=== PATIENT | male | born 1965 | race Caucasian/White ===

== ENCOUNTER → 2017-09-03 | Day surgery (SDC) | payer OTHER ==
[2017-09-02 08:56] VITALS: Ht 176.5 cm; Wt 130.0 kg
[~2017-09-03] VITALS: Ht 176.5 cm; Wt 130.0 kg
[~2017-09-03] MED LIST: ATROPINE SULFATE 0.1 MG/ML 5ML SYR IV PRN; BUPIVACAINE/EPINEPHRINE 0.5% MPF 1:200,000 30 ML VIAL ONE; CEFAZOLIN 3000MG IV PUSH 15 ML IV SCH; CEFAZOLIN SOD 1 GM VIAL ONE; CEFAZOLIN SOD 1000MG/5 ML IV PUSH IV ONE; DEXAMETHASONE SOD INJ 4 MG/ML VIAL ONE; EpHEDrine SULFATE INJ 50 MG/ML AMP IV PRN; EpHEDrine SULFATE INJ 50 MG/ML AMP ONE; FENTANYL CITRATE INJ 50 MCG/1 ML 2 ML VIAL ONE; FIBETAB2 PO; FLUMAZENIL 0.1 MG/1 ML 10 ML VIAL IV PRN; GLYCOPYRROLATE INJ 0.2 MG/ML VIAL ONE; KETO10TA PO; LABETALOL HCL IV 5 MG/ML 20ML IV PRN; LACTATED RINGER'S 1000ML 1,000 ML IV SCH; LIDOCAINE HCL 2% 2 ML VIAL (20MG/ML) ONE; LOSA1TAB PO; LSX20 PO; MIDAZOLAM HCL 1 MG/ML 2ML VIAL ONE; NALOXONE HCL 0.4 MG/1 ML VIAL/CARP IV PRN; NEOSTIGMINE METHYLSULFATE 5 MG/5 ML SYR ONE; ONDANSETRON INJ 2 MG/ML 2 ML VIAL IV PRN; ONDANSETRON INJ 2 MG/ML 2 ML VIAL ONE; OXYC-57 PO; OXYCODONE/ACETAMINOPHEN 5-325 TAB PO PRN; PROMETHAZINE HCL INJ 12.5 MG in SODIUM CHLORIDE 0.9% 50ML 50 ML IV PRN; PROPOFOL IV EMULSION 10 MG/ML 20 ML VIAL IV ONE; PRVC40 PO; ROCURONIUM BROMIDE 10 MG/ML 5 ML VIAL IV ONE; SODIUM CHLORIDE 0.9% 1000ML 1,000 ML IV SCH; SODIUM CHLORIDE 0.9% INJ 10 ML VIAL ONE; SUCCINYLCHOLINE CHLORIDE 20 MG/ML 10 ML VIAL IV ONE; VNTHFA/IN INH
--- NOTE | 2017-09-03 10:26 | History & Physical Bridge - [place] ---
H&P Re-Evaluation Bridge Note: I have examined the patient, reviewed the History & Physical and in the interval since the performance of the History & Physical I have noted the following changes of clinical significance: No changes noted
--- NOTE | 2017-09-03 12:14 | [facility] Post Operative Brief Note ---
Immediate Operative Summary Operative Date Sep 03, 2017. Pre-Operative Diagnosis Right Distal Biceps Rupture Post-Operative Diagnosis Same Procedure(s) Performed Right Distal Biceps Repair Surgeon Dr. Carson Nursing Attendant Surgeon(s) Jessica Woods PA-C Estimated Blood Loss 20 ml Findings Right Distal Biceps Rupture Specimens None Anesthesia General Complication(s) None Disposition Recovery Room / PACU
--- NOTE | 2017-09-03 12:16 | Discharge Instructions-SurgCtr ---
Discharge Instructions Date of Service Sep 03, 2017. Visit Reason for Visit: Right Distal Biceps Rupture Discharge Discharge Diagnosis / Problem: right distal bicep rupture Discharge Goals Goal(s): Improve function, Therapeutic intervention Medications Stopped Medications Name(s): no blood thinners Activity Recommendations Activity Limitations: per Instructions/Follow-up section limited use of right arm Anesthesia . Post Anesthesia Instructions: If you have had General Anesthesia or IV Sedation: * Do not drive today. * Resume driving when surgeon permits. * Do not make important decisions or sign legal documents today. * Call surgeon for: 1. Temperature elevations greater than 101 degrees F. 2. Uncontrollable pain. 3. Excessive bleeding. 4. Persistent nausea and vomiting. 5. Medication intolerance (nausea, vomiting or rash). * For nausea and vomiting use only clear liquids such as: tea, soda, bouillon until nausea subsides, then gradually increase diet as tolerated. * If you have any concerns or questions, call your surgeon's office. If physician is unavailable and it is an emergency, call 911 or go to the nearest emergency room. . Instructions / Follow-Up Instructions / Follow-Up MEDICATIONS: * Resume previous medications unless instructed otherwise by your surgeon. * Always take pain medication on a full stomach or with food to avoid upset stomach. * Do not drink alcohol or drive while taking narcotics. * Ibuprofen or Tylenol may be taken if narcotic not needed. No ibuprofen while taking toradol SPECIAL CARE INSTRUCTIONS: __ None _x_ Keep extremity elevated and iced x 48 hours; apply ice 20-30 minutes 8-10 times/day. May remove at night. _x_ Sling _x_24 hrs/day __ Remove at night __ Shoulder Immobilizer __ 24 hrs/day __ Remove at night _x_ Dressing _x_ Maintain until seen in office, may shower with plastic over site __ Remove dressings in 24-48 hours and then may shower __ Cover incisions with band-aids after showering __ Do not remove steri-strips Call physician if chills or temperature rises above 102 degrees or pain unrelieved by prescribed pain medications at . follow up in 2 weeks . Diet Recommendations Home Diet: resume previous diet Procedures Procedures Performed: Right Distal Biceps Repair Pending Studies Studies pending at discharge: no Medical Emergencies . Who to Call and When: Medical Emergencies: If at any time you feel your situation is an emergency, please call 911 immediately. . Non-Emergent Contact Non-Emergency issues call your: Surgeon . . "Provider Documentation" section prepared by Ken Woods. .
[2017-09-03] MEDS: HYDROmorphone INJ 1 MG/ML SYR IV PRN ×3 (13:10→13:35)
--- NOTE | 2017-09-03 13:44 | OPERATIVE REPORT ---
DATE OF OPERATION: 09/03/2017 SURGEON: Dr. Naun Carson. OFFICE MACHINE SERVICER APPRENTICE: FREDY Nelson PREOPERATIVE DIAGNOSIS: Subacute right distal biceps rupture. POSTOPERATIVE DIAGNOSIS: Same. PROCEDURE PERFORMED: Right distal biceps repair. COMPLICATIONS: None. ESTIMATED BLOOD LOSS: 20 mL. ANESTHESIA: General. SPECIMENS: None. TOURNIQUET TIME: 44 minutes at 250 mmHg. OPERATIVE INDICATIONS: The patient is a 51-year-old gentleman who injured his arm initially just about 3 weeks ago. He was apparently carrying a ladder when he kind of felt a tearing sensation, pain and discomfort in his arm. It got significantly better over the next several days. He was actually out of town for a while and then just a couple days ago, he felt like most of the pain was better and then he did something where he was in the bathroom and felt further popping and discomfort and swelling in his arm. He was seen in his medical clinic and had an MRI which revealed a distal biceps rupture. The patient elected to proceed with operative treatment. OPERATIVE PROCEDURE: The patient was taken to the operating room, identified and placed on the operating table in supine position. All contact areas were appropriately padded. IV antibiotics were provided by the anesthesia team. A general anesthetic was implemented by the anesthesia team. Right upper extremity tourniquet was placed. The right arm was then prepped and draped in the usual sterile fashion. The right arm was elevated and exsanguinated using an Esmarch and tourniquet was placed at 250 mmHg. A transverse incision about 4 cm in length was made in the antecubital fossa. Blunt dissection was carried out through the subcutaneous tissues. A large vein as well as the lateral antebrachial cutaneous nerve was identified and retracted laterally. I opened the fascia and I could immediately see the ruptured biceps tendon. It was scarred in a little bit. There was also a very large elephant foot appearance to the stump. I did trim this elephant foot stump down and then we tapped this back up into the arm. I then used a curved Teresita clamp along with my finger to develop a plane of the biceps tendon to the back of the forearm. I then passed this Teresita clamp around the radius to the posterior aspect of the arm and then marked this for the posterior exposure. Attention was then drawn to the posterior exposure. About a 5 cm incision was made over the posterior aspect of the elbow over the proximal radius and radial tuberosity. Sharp dissection was carried out through the subcutaneous tissues down to the level of the fascia. The fascia was incised longitudinally in line with the skin incision. The extensor muscle was split taking great care to keep the arm pronated and the radial nerve protected while avoid exposing the ulna to prevent any synostosis formation. I dissected directly down to the radial tuberosity. It was fairly large soft tissue envelope. There was some distance. I then cleaned the radial tuberosity off. I used a bur to create a hole in the radial tuberosity. I then drilled 2 holes the lateral aspect of the radius into the intramedullary canal. I then used a FloDesign Wind Turbine suture passer to pass some sutures through these holes into the intramedullary canal. I then went back to the biceps preparation. The biceps tendon was then sutured with a #2 FiberWire suture in a running fashion up and down the tendon. I then used a #5 Ethibond in a modified Bunnel fashion. These sutures were then passed from the antecubital fossa around the radial tuberosity to the posterior aspect of the arm. The passing sutures were then used to pass those sutures into the radius. I fed the tendon into the hole and it fit quite nicely. The sutures were then tied. I then examined the arm and the biceps tendon locked down nicely. It was a bit tight, but as it was expected. I then irrigated both wounds extensively. I injected the posterior wound with 20 mL of 0.5% Marcaine with epinephrine and the anterior wound with 10 mL of 0.5% Marcaine with epinephrine. The tourniquet was then let down for final tourniquet time 44 minutes. The hemostasis was assured with use of electrocautery. I irrigated both wounds extensively to get rid of any bony debris that would increase risk of heterotopic ossification. I then repaired the fascia over the posterior wound with 0 Vicryl suture in running fashion. The subcutaneous tissue was closed with 3-0 vicryl. The anterior wound was then irrigated. I closed the subcutaneous tissues of this wound with 3-0 Vicryl suture in buried interrupted fashion and the skin was then closed with 3-0 Prolene suture in a running fashion. The arm was then cleaned and dried and a sterile dressing of Xeroform, 4 x 4's, sterile cast padding and a well-padded posterior splint with the arm in 90 degrees of flexion was then placed. The patient was also placed in a sling. He was brought out of general anesthesia and transferred to the recovery room in stable condition. The patient tolerated the procedure with no complications. All needle and sponge counts were correct at the end of the operation. I attest to the content of the Intraoperative Record and any orders documented therein. Any exceptions are noted below. NANCY
--- NOTE | 2017-09-03 14:09 | Anesthesia Progress Nt - [facility] ---
Anesthesia Post Op Note Date & Time Sep 03, 2017 at 14:09 Vital Signs Pain Intensity: 4 Vital Signs Past 12 Hours Date Time Temp Pulse Resp B/P (MAP) Pulse Ox O2 Delivery O2 Flow Rate FiO2 09/03/17 13:41 88 8 90 09/03/17 13:41 89 8 09/03/17 13:40 116/63 09/03/17 13:37 36.4 86 16 116/63 96 Room Air 09/03/17 13:36 99 16 94 09/03/17 13:36 98 16 09/03/17 13:35 95/70 09/03/17 13:31 90 13 95 09/03/17 13:31 91 13 09/03/17 13:30 120/76 09/03/17 13:26 91 12 09/03/17 13:26 91 12 91 09/03/17 13:25 115/72 09/03/17 13:21 95 12 09/03/17 13:21 95 12 95 09/03/17 13:20 111/60 09/03/17 13:16 90 9 95 09/03/17 13:16 90 9 09/03/17 13:15 116/66 09/03/17 13:11 90 10 94 09/03/17 13:11 91 10 09/03/17 13:10 116/79 09/03/17 13:06 94 5 09/03/17 13:06 95 5 139/82 93 09/03/17 13:01 89 10 09/03/17 13:01 89 10 95 09/03/17 13:00 102/72 09/03/17 12:56 89 17 09/03/17 12:56 89 17 125/72 93 09/03/17 12:51 88 8 09/03/17 12:51 88 8 92 09/03/17 12:50 132/78 09/03/17 12:46 89 6 09/03/17 12:46 90 6 94 09/03/17 12:45 132/78 09/03/17 12:41 86 9 09/03/17 12:41 86 9 107/82 95 09/03/17 12:36 88 0 09/03/17 12:36 88 0 94 09/03/17 12:35 136/81 09/03/17 12:31 89 16 126/79 96 09/03/17 12:31 89 16 09/03/17 12:26 90 19 97 09/03/17 12:26 91 19 09/03/17 12:25 36.5 91 16 140/86 97 Diffusion Mask 09/03/17 12:25 132/76 09/03/17 12:22 140/86 09/03/17 09:13 36.7 87 18 128/83 (98) 96 Room Air Notes Mental Status: alert / awake / arousable, participated in evaluation Pt Amnestic to Procedure: Yes Nausea / Vomiting: adequately controlled Pain: adequately controlled Airway Patency, RR, SpO2: stable & adequate BP & HR: stable & adequate Hydration State: stable & adequate Anesthetic Complications: no major complications apparent
[2017-09-03 14:46] VITALS: BP 107/69; PULSE 99; TEMP 36.4; O2SAT 96
== END | disposition home or self-care (01) ==
LOC: X.SURG 08:51
PROVIDERS: ATTEND Orthopaedic Surgery Sports Medicine
DX: S46.211A Strain of muscle, fascia and tendon of other parts of biceps, right arm, initial encounter (principal); X50.0XXA Overexertion from strenuous movement or load, initial encounter; I10 Essential (primary) hypertension; Z79.899 Other long term (current) drug therapy

== ENCOUNTER 2024-01-07 13:55 | Observation (INO) ==
--- NOTE | 2024-01-07 14:05 | ED Triage Note ---
Date of Service January 07, 2024 Provider in Triage Author: Mag Hebert History of Present Illness This patient was briefly evaluated while in triage. An abbreviated physical exam was performed. This patient is a 58-year-old Male who presents to the ED for evaluation of chest pain intermittently over past couple weeks. States sent here with concern for "mild heart attack." No cardiac history. No sob. Had a stress test in 2009. Physical Exam CONSTITUTIONAL: No acute distress. Well appearing. RESPIRATORY: Clear to auscultation bilaterally. Nonlabored breathing. Equal expansion bilaterally. CARDIOVASCULAR: Regular rate and rhythm. GASTROINTESTINAL: Soft, nontender. NEUROLOGIC: Alert and oriented X 4 with normal affect. Initial orders for labs and / or imaging were placed and patient was placed in the waiting area until a bed is available. Please see further documentation for the full ED course.
--- NOTE | 2024-01-07 14:55 | XRay Report ---
XR chest 1V not portable CLINICAL HISTORY: Chest pain, nonspecific TECHNIQUE: Single frontal radiograph of the chest was obtained. Comparison: Comparison is made to chest and abdomen radiograph 01/13/2013 FINDINGS: No lines and tubes are seen. The cardiomediastinal silhouette is normal. The lungs are clear. No evid ence of pleural effusion or pneumothorax. IMPRESSION: No acute chest disease. ACT 112: Negative or not required by law. Electronically signed by: Tashi Saucedo M.D. 01/07/2024 2:53 PM
[2024-01-07 14:57] LABS: Basophils # (auto) 0.06 K/uL (0.00-0.20); Basophils % (auto) 0.6 %; Hematocrit (blood only) 47.6 % (42.0-52.0); Hemoglobin 16.8 g/dl (14.0-18.0); Immature Granulocytes # (auto) 0.06 K/uL (0.01-0.20); Immature Granulocytes % (auto) 0.6 %; Lymphocytes # (auto) 2.22 K/uL (1.20-3.40); Lymphocytes % (auto) 22.7 %; Mean Corpuscular Hemoglobin 29.5 pg (25.0-34.0); Mean Corpuscular Hgb Conc 35.3 g/dL (32.0-36.0); Mean Corpuscular Volume 83.5 fL (80.0-100.0); Mean Platelet Volume 9.7 fL (9.4-12.4); Monocytes # (auto) 0.92 K/uL (0.11-0.59); Monocytes % (auto) 9.4 %; Neutrophils # (auto) 6.34 K/uL (1.40-6.50); Neutrophils % (auto) 64.7 %; Platelet Count 228 K/uL (130-400); RDW Coefficient of Variation 13.3 % (11.5-14.5); RDW Standard Deviation 40.3 fL (36.4-46.3)
[2024-01-07 15:13] LABS: Alanine Aminotransferase 37 U/L (7-52); Albumin Globulin Ratio 1.7 (0.9-2); Albumin Level 4.7 gm/dl (3.4-5.0); Alkaline Phosphatase 72 U/L (34-104); Anion Gap 11 (3-11); Aspartate Aminotransferase 27 U/L (13-39); BUN Creatinine Ratio 21.3 (10-20); Bilirubin,Total 0.8 mg/dl (0.2-1.0); Blood Urea Nitrogen 17 mg/dl (6-23); Calcium 9.2 mg/dl (8.6-10.3); Carbon Dioxide 25 mmol/L (21-32); Chloride 104 mmol/L (98-107); Est GFR (African American) 115.7 ml/min; Est GFR (Non-African American) 99.9 ml/min; Globulin 2.8 gm/dl (2.5-4.0); Glucose 110 mg/dl (70-99(Fasting)); Lipase 21 U/L (11-82); Potassium 3.7 mmol/L (3.5-5.1); Sodium 140 mmol/L (136-145); Total Protein 7.5 gm/dl (6.0-8.3)
[2024-01-07 15:18] LABS: Troponin I High Sensitivity 4.5 pg/ml (0-20)
[2024-01-07 15:25] LABS: Partial Thromboplastin Ratio 0.9; Partial Thromboplastin Time 26 Seconds (21-31); Prothrombin Time 10.5 Seconds (9.0-12.0)
--- NOTE | 2024-01-07 16:24 | Emergency Department Note ---
Impression & Plan Chest pain, Obesity, morbid, BMI 40.0-49.9 ED Provider Note NAME: MAICOL BAUTISTA AGE: 58 SEX: M : 1965 ARRIVES VIA: Walk-In INFORMANT: Patient, ED PROVIDER(S): Vijay Ballesteros MD CHIEF COMPLAINT: Chest pain MEDICAL DECISION MAKING: Patient presents due to concern for chest pain. IV was established and blood work is obtained. Patient does have Q waves which are new from comparison EKG from 2021. EKG today is unchanged from 1 that he had done in clinic but both appear slightly different from comparison 2021. Chest x-ray with no acute findings. Blood work shows a normal white count H&H and platelet count. The patient's kidney function unremarkable BSG at 110 but nonfasting and not DKA. Troponin is not elevated. After further discussion with the patient we did discuss close outpatient follow-up and possible outpatient stress test versus inpatient observation stress test in the morning. After further discussion with the patient the patient's family patient does have moderate risk heart score prefer to stay in hospital for further provocative testing tomorrow morning. Patient was ordered the rest of 324 of aspirin as the patient does take a baby aspirin. I did speak with Christiano Gonzalez PA-C and the patient was admitted by Dr. Prieto. Discussion w/ other healthcare providers: Kandice Gonzalez PA-C and Dr. Prieto inpatient medicine service [facility] Prior /Outside records reviewed: None Differential diagnosis: Cardiac ischemia, aortic dissection, pulmonary embolism, pneumothorax, pneumonia, pericarditis, myocarditis, GERD, cholecystitis, pancreatitis, musculoskeletal, as well as other pathologies were considered. Diagnostics, as interpreted by me: ECG: Normal sinus rhythm, rate of 85, normal intervals, left axis deviation no ST elevations. Cardiac monitoring: An order was placed for continuous cardiac monitoring. The monitor shows a rate of 82 with sinus rhythm. Patient was placed on pulse oximetry Medical decision rules: Heart score Imaging studies: I informally interpreted the patient's chest x-ray does not show obvious pneumonia or pneumothorax with formal report to follow. HPI: Patient presents due to concern for chest pain. The patient was seen at his outpatient providers office did have an EKG and there was concern that he may have had a "mild heart attack." Patient states that his current chest pain is maybe about a 1 but when he has had it has been more diffuse across the chest. The patient states he had 2 prior episodes of chest pain earlier in the week on Friday and then again on Friday he had associated chest pain with nausea. Patient states that he did have a stress test [place] [address] Daley does not show any acute findings at that time. The patient states that he does have some right lower extremity swelling but this has been unchanged for greater than a year. No trauma. The patient denies any recent surgeries procedures or hospitalizations and no recent prolonged car or plane travel. Patient does have a history of a prior shoulder surgery completed in 2021 and initially thought that the bout on Friday may have been related to his shoulder but because he had associated shoulder pain chest pain and nausea the following day he did schedule his outpatient appointment and thus presented here for further evaluation. The patient states that he does occasionally smoke a cigar maybe once a month but that the patient sometimes can go without drinking alcohol for months at a time. Patient denies any cough or fever. Patient does have a reported history of asthma. PAST MEDICAL HISTORY: See Below PAST SURGICAL HISTORY: See Below SOCIAL HISTORY: See Below HOME MEDICATIONS: See Below ALLERGIES: See Below VITALS: See Below PHYSICAL EXAMINATION: GENERAL: NAD, non-toxic. Wearing glasses. BMI 39.8 EYE EXAM: Normal conjunctiva. PERRL, no anisocoria and EOM's grossly intact w/o pain. OROPHARYNX: Moist mucus membranes, grossly normal dentition. NECK: Trachea midline, no stridor. Supple, no nuchal rigidity, no adenopathy, non-tender. No signs of meningismus. FROM of the neck with good chin to chest and neck extension. LUNGS: Clear to auscultation. Normal chest wall mechanics. HEART: NSR, no MRG. ABDOMEN: Abdomen soft, non-tender, no masses, no rebound or guarding. BACK: No CVA TTP. SKIN: No rashes and no bruising. UPPER EXTREMITIES: Upper extremities are grossly normal. LOWER EXTREMITIES: Grossly normal, no edema. Negative Homans' sign bilaterally. NEURO EXAM: A&O x3, cranial nerves II-XII grossly intact, normal speech, moves all 4 extremities. Past Med/Surg History Medical History Diabetes mellitus, type 2 HLD (hyperlipidemia) History of anesthesia reaction KEPT A LITTLE LONGER BECAUSE O2 WAS A LITTLE LOW - BICEP SX , [place] (2016 OR 2017) DR KC Nausea after anesthesia History of small bowel obstruction History of kidney stones Sleep apnea CPAP History of high blood pressure HX MED FOR/SINCE RETIRED MED D/C'D ..NO CURRENT MED FOR Nail fungus Acid reflux Surgical History History of endoscopy History of colonoscopy History of surgery RIGHT BICEP History of lithotripsy [place] teeth removed HX History of surgery CYST REMOVAL History of placement of ear tubes X2 1970'S Family History Grandfather (Maternal) Family history of throat cancer Grandfather (Paternal) Family history of colon cancer Uncle Family history of colon cancer Uncle Family history of colon cancer Social History Smoking Status: Never smoker Tobacco Type: Cigars Cigarettes Per Day: 0; Second Hand Exposure: No; Do You Dip or Chew Tobacco: No; Hx Alcohol Use: No Hx Substance Use: No Preferred Language: Chinese Communication Ability: Effective Rn Invasive Required: No Beliefs That Will Affect Care: None Current Living Situation: Spouse Feels Safe at Home: Yes Assistive Devices: CPAP Allergies Allergies Allergy/AdvReac Type Severity Reaction Status Date / Time bee venom protein (honey bee) Allergy Unknown TIGHTNESS Verified 01/07/24 17:06 IN CHEST, USED BENADRYL TO TX - SEE NOTES lisinopril AdvReac Unknown coughing Verified 01/07/24 17:06 spells Home Meds Home Medications Medication Instructions Recorded Confirmed aspirin 81 mg tablet,delayed 81 mg PO QAM 08/05/22 01/07/24 release empagliflozin 25 mg tablet 25 mg PO QAM 08/05/22 01/07/24 (Jardiance) furosemide 20 mg tablet 20 mg PO QAM Fluid Retention 08/05/22 01/07/24 metformin 500 mg tablet 2,000 mg PO HS 08/05/22 01/07/24 cyanocobalamin (vitamin B-12) 1,000 mcg PO QAM 01/07/24 01/07/24 1,000 mcg tablet (Vitamin B-12) losartan 25 mg tablet 25 mg PO QAM 01/07/24 01/07/24 mecobalamin (vitamin B12) 1,000 1,000 mcg PO DAILY 01/07/24 01/07/24 mcg chewable tablet (B12 Active) Previous Rx's Medication Instructions Recorded atorvastatin 40 mg tablet 40 mg PO QAM #90 tabs 01/08/24 pantoprazole 40 mg tablet,delayed 40 mg PO BID #60 tabs 01/08/24 release Results & Data (ED) Vital Signs Vital Signs - 24 hr 01/07/24 13:59 Temperature 36.3 C L Temperature Source Temporal Artery Scan Pulse Rate 89 Respiratory Rate 18 Blood Pressure 154/105 H Blood Pressure Mean 121 Pulse Oximetry 97 Oxygen Delivery Method Room Air Sepsis Recent Fever Within 48 Hours No Sepsis New/Unexplained Change in Mental Status N/A Sepsis Action Taken by Nursing No Action Required Home Medications Current Medication List: was personally reviewed by me Laboratory Data Attestation: I reviewed the patient's lab results. 01/08/24 05:58 01/08/24 05:58 Lab Results 01/07/24 01/07/24 Range/Units 14:32 16:58 WBC 9.80 (4.8-10.8) K/ul RBC 5.70 (4.70-6.10) M/uL Hgb 16.8 (14.0-18.0) g/dl Hct 47.6 (42.0-52.0) % MCV 83.5 (80.0-100.0) fL MCH 29.5 (25.0-34.0) pg MCHC 35.3 (32.0-36.0) g/dL RDW Std Deviation 40.3 (36.4-46.3) fL RDW Coeff of Karmen 13.3 (11.5-14.5) % Plt Count 228 (130-400) K/uL MPV 9.7 (9.4-12.4) fL Immature Gran % (Auto) 0.6 % Neut % (Auto) 64.7 % Lymph % (Auto) 22.7 % Hartley % (Auto) 9.4 % Eos % (Auto) 2.0 % Baso % (Auto) 0.6 % Neut # (Auto) 6.34 (1.40-6.50) K/uL Lymph # (Auto) 2.22 (1.20-3.40) K/uL Hartley # (Auto) 0.92 H (0.11-0.59) K/uL Eos # (Auto) 0.20 (0.00-0.50) K/uL Baso # (Auto) 0.06 (0.00-0.20) K/uL Immature Gran # (Auto) 0.06 (0.01-0.20) K/uL PT 10.5 (9.0-12.0) Seconds INR 1.0 (0.9-1.1) APTT 26 (21-31) Seconds PTT Ratio 0.9 Sodium 140 (136-145) mmol/L Potassium 3.7 (3.5-5.1) mmol/L Chloride 104 (98-107) mmol/L Carbon Dioxide 25 (21-32) mmol/L Anion Gap 11 (3-11) BUN 17 (6-23) mg/dl Creatinine 0.80 (0.6-1.4) mg/dl Est Cr Clr Drug Dosing Not Reportable Est GFR ( Amer) 115.7 ml/min Est GFR (Non-Af Amer) 99.9 ml/min BUN/Creatinine Ratio 21.3 H (10-20) Glucose 110 H (70-99(Fasting)) mg/dl Calcium 9.2 (8.6-10.3) mg/dl Total Bilirubin 0.8 (0.2-1.0) mg/dl AST 27 (13-39) U/L ALT 37 (7-52) U/L Alkaline Phosphatase 72 (34-104) U/L Troponin I High Sens 4.5 3.9 (0-20) pg/ml Total Protein 7.5 (6.0-8.3) gm/dl Albumin 4.7 (3.4-5.0) gm/dl Globulin 2.8 (2.5-4.0) gm/dl Albumin/Globulin Ratio 1.7 (0.9-2) Lipase 21 (11-82) U/L Administered Medications Discontinued Medications Aspirin (Aspirin Chew 324 Mg) 243 mg PO NOW STA Stop: 01/07/24 16:56 Last Admin: 01/07/24 17:01 Dose: 243 mg Documented By: LISBET Aspirin (Aspirin 81 Mg Ectab) [facility] Stop: 02/07/24 08:59 Last Admin: 01/08/24 08:38 Dose: 81 mg Documented By: CONNER Atorvastatin Calcium (Atorvastatin 20 Mg Tab) 20 mg PO [facility] Stop: 02/07/24 08:59 Last Admin: 01/08/24 08:38 Dose: 20 mg Documented By: CONNER Atropine Sulfate (Atropine Sulfate 0.1 Mg/Ml 10ml Syr) Confirm Administered Dose 2 mg IV .[facility] Stop: 01/08/24 10:59 Last Admin: 01/08/24 12:40 Dose: Not Given Documented By: DEANDRE Cyanocobalamin (Cyanocobalamin (B-12) 500 Mcg Tablet) 1,000 mcg PO [facility] Stop: 02/07/24 08:59 Last Admin: 01/08/24 08:38 Dose: 1,000 mcg Documented By: CONNER Dobutamine HCl (Dobutamine Hcl 12.5 Mg/Ml 20 Ml Vial) Confirm Administered Dose 250 mg IV .[facility] Stop: 01/08/24 10:59 Last Admin: 01/08/24 12:40 Dose: 1 dose Documented By: DEANDRE Furosemide (Furosemide 20 Mg Tab) 20 mg PO [facility] Stop: 02/07/24 08:59 Last Admin: 01/08/24 08:38 Dose: 20 mg Documented By: CONNER Insulin Aspart (Insulin Aspart Per Unit Charge) 0 units SC Q6 [facility] Stop: 02/07/24 00:00 Last Admin: 01/08/24 12:33 Dose: 5 units Documented By: CONNER Co-signed By: IRIS Admin: 01/08/24 06:15 Dose: Not Given Documented By: Admin: 01/07/24 23:52 Dose: Not Given Documented By: BARBIE Ioversol (Optiray 320 125ml) 112 ml IV ONCE ONE Stop: 01/08/24 08:56 Last Admin: 01/08/24 08:56 Dose: 112 ml Documented By: EDEN Losartan Potassium (Losartan Potassium 25 Mg Tab) 25 mg PO QPM [facility] Stop: 02/06/24 20:59 Last Admin: 01/07/24 21:08 Dose: Not Given Documented By: BARBIE Losartan Potassium (Losartan Potassium 25 Mg Tab) [facility] Stop: 02/07/24 08:59 Last Admin: 01/08/24 08:38 Dose: 25 mg Documented By: CONNER Metoprolol Tartrate (Metoprolol Tartrate 1 Mg/Ml Vial) Confirm Administered Dose 10 mg IV .[facility] Stop: 01/08/24 10:59 Last Admin: 01/08/24 12:40 Dose: 5 mg Documented By: DEANDRE Pantoprazole Sodium (Pantoprazole 40 Mg Tab) [facility] Stop: 02/07/24 08:59 Last Admin: 01/08/24 08:38 Dose: 40 mg Documented By: CONNER Imaging Data Radiologist's Impression: Chest X-Ray 01/07/24 14:01 XR chest 1V not portable CLINICAL HISTORY: Chest pain, nonspecific TECHNIQUE: Single frontal radiograph of the chest was obtained. Comparison: Comparison is made to chest and abdomen radiograph 01/13/2013 FINDINGS: No lines and tubes are seen. The cardiomediastinal silhouette is normal. The lungs are clear. No evidence of pleural effusion or pneumothorax. IMPRESSION: No acute chest disease. ACT 112: Negative or not required by law. Electronically signed by: Tashi Saucedo M.D. 01/07/2024 2:53 PM Discharge Plan Visit Data Chief Complaint: Cardiac Assessment Stated Complaint: CHEST DISCOMFORT/REFFERED BY DR LEON ED Provider: Vijay Blalesteros Discharge Problem: Chest pain, Obesity, morbid, BMI 40.0-49.9 Patient Disposition: Admitted As Inpatient Discharge Instructions Interventions: ED Discharge Assessment Last Done: 01/07/24 18:26
[2024-01-07] MEDS: ASPIRIN CHEW 324 MG PO STA (17:01)
--- NOTE | 2024-01-07 17:01 | Electrocardiogram Report ---
Test Reason : Blood Pressure : / mmHG Vent. Rate : 085 BPM Atrial Rate : 085 BPM P-R Int : 186 ms QRS Dur : 094 ms QT Int : 364 ms P-R-T Axes : 063 -58 066 degrees QTc Int : 433 ms Normal sinus rhythm Left anterior fascicular block Poor R wave progression, consider anterior ID vs. lead placement vs. LVH Abnormal ECG When compared with ECG of 24-JUL-2022 10:54, No significant change was found Confirmed by Yeison Zhu ([id number]) on 01/07/2024 5:01:23 PM Referred By: Confirmed By:Horacio Zhu
--- NOTE | 2024-01-07 17:29 | History & Physical Report ---
Date of Service January 07, 2024 Assessment & Plan (1) Chest pain: (2) Hypertension: (3) HLD (hyperlipidemia): (4) Obesity, morbid, BMI 40.0-49.9: Plan: Atypical Chest Pain HTN HLD Obesity BMI 41.7 - Admit to tele for observation for r/o - Trend cardiac biomarkers, initial set was negative - EKG reviewed as above - Check 2 D echo - If negative enzymes can consider a stress test tomorrow morning. - PT/OT consulted - Consult cardiology for possible stress testing - Diet and exercise recommendations were discussed at bedside, will continue throughout hospital stay - Check A1C and lipids with am labs - Continue antihypertensive medications - Pt is on lasix 20 mg daily --- may be able to remove this medication - Pts notes having poor feeling for about 2 hours after taking losartan in the morning, will switch this to evening and see if this improves symptoms DM II - Hold jardiance and metformin - ISS with accuchecks achs - Check a1c with am labs DVT ppx: teds, scds Lines: 2 PIV CODE: FULL Diet: HH/DM diet Dispo: From home, likely to remain in the hospital x 1-2 days A total of 80 minutes were spent with greater than 50% of that time face to face with the patient, personally reviewing all current laboratories, imaging studies, past medication reconciliation, outpatient chart review, and discussion with specialists to collaborate care for the patient with attending. Please see attending documentation for corrections and/or additions. History of Present Illness Chief Complaint: Chest pain Primary Care Provider: Weston Andrews MD This is a 58 yo M with PMHx of HTN, HLD, DM II, obesity who presents with several occurrences of chest pain. Pt noticed it on Friday a few episodes of chest pain, then again happened on Friday with with a few seconds of chest pain, sharp quick pain, nonradiating. No associated shortness of breath, diaphoresis, and this occurred at rest. He denies any of these episodes during exertional activities. Rates this as a 1/10 and feels it is a nuisance more so than a pain at this time. Pt notes a generalized ill feeling after taking losartan in the morning for about 2 hours regularly since he started the medication last fall. He is very active person, but does not specifically exercise. Pt is currently employed at a [employer] and lifts 40-50 lbs items at a time on daily basis. He also notes he has dealt with left shoulder blade muscle tension chronically. He has left distal clavicle resection shoulder surgery in 2021, but states that he has recovered since such. He describes this pain in the shoulder prior to the surgery and afterwards was a dull ache, sometimes with left arm numbness, but the other chest pain as described above is completely different. He has chronic left knee pain and left lower extremity swelling. Pt takes diuretic daily and hasn't noticed any increases in edema. We discussed that if he needed to participate in a treadmill stress test, that he feels he would be able to do it. Pt reports recently getting over a pneumonia in Oct - Nov 2023 where he was treated with steroids, antibiotics and inhalers. He still has a cough but denies any shortness of breath. Social Hx: Smokes cigar once ever 1-3 months. Denies any cigarette use, hx of chewing tobacco 20 years ago. Reports occasional alcohol intake 1-2x per month. Denies any drug use. Family Hx: Mother: CHF Allergies Allergy/AdvReac Type Severity Reaction Status Date / Time bee venom protein (honey bee) Allergy Unknown TIGHTNESS Verified 01/07/24 17:06 IN CHEST, USED BENADRYL TO TX - SEE NOTES lisinopril AdvReac Unknown coughing Verified 01/07/24 17:06 spells Home Medications Medication Instructions Recorded Confirmed Type aspirin 81 mg tablet,delayed 81 mg PO QAM 08/05/22 01/07/24 History release atorvastatin 20 mg tablet 20 mg PO QAM 08/05/22 01/07/24 History empagliflozin 25 mg tablet 25 mg PO QAM 08/05/22 01/07/24 History (Jardiance) furosemide 20 mg tablet 20 mg PO QAM Fluid Retention 08/05/22 01/07/24 History metformin 500 mg tablet 2,000 mg PO HS 08/05/22 01/07/24 History pantoprazole 40 mg tablet,delayed 40 mg PO QAM 08/05/22 01/07/24 History release cyanocobalamin (vitamin B-12) 1,000 mcg PO QAM 01/07/24 01/07/24 History 1,000 mcg tablet (Vitamin B-12) losartan 25 mg tablet 25 mg PO QAM 01/07/24 01/07/24 History mecobalamin (vitamin B12) 1,000 1,000 mcg PO DAILY 01/07/24 01/07/24 History mcg chewable tablet (B12 Active) naproxen 500 mg tablet 500 mg PO BID PRN Pain 01/07/24 01/07/24 History Past Med/Surg History Medical History (Updated 01/07/24 @ 17:36 by Raegan Gonzalez PA-C) HLD (hyperlipidemia) History of anesthesia reaction KEPT A LITTLE LONGER BECAUSE O2 WAS A LITTLE LOW - [place] , [place] (2016 OR 2017) DR KC Nausea after anesthesia History of small bowel obstruction History of kidney stones Sleep apnea CPAP History of high blood pressure HX MED FOR/SINCE RETIRED MED D/C'D ..NO CURRENT MED FOR Nail fungus Acid reflux Pre-diabetes Surgical History History of endoscopy History of colonoscopy History of surgery RIGHT BICEP History of lithotripsy [place] teeth removed HX History of surgery CYST REMOVAL History of placement of ear tubes X2 1969' Family History Grandfather (Maternal) Family history of throat cancer Grandfather (Paternal) Family history of colon cancer Uncle Family history of colon cancer Uncle Family history of colon cancer Social History Smoking Status: Never smoker Cigarettes Per Day: OCC 2-3 PER YR - ADVISED NPO; Do You Dip or Chew Tobacco: No (HX, NONE CURRENT - QUIT 1992); Hx Alcohol Use: Yes (MOSTLY BEER/OCC HARD DRINK) Alcohol type: beer Hx Substance Use: No Preferred Language: Brazilian Communication Ability: Effective Ammonia Worker Required: No Beliefs That Will Affect Care: None Current Living Situation: Spouse Feels Safe at Home: Yes Assistive Devices: CPAP and Glasses Review of Systems Review of Systems: Constitutional: No fever, sweats or chills Eyes: No diplopia, no worsening or blurred vision ENT: normal hearing, no trouble swallowing Respiratory: + occasional dry cough, no sputum, dyspnea at rest or on exertion Cardiovascular:+ as per HPI, currently no chest pain, tightness or palpitations Abdomen: No pain, nausea, vomiting, diarrhea or constipation Musculoskeletal: No joint pain, calf pain, + chronic left lower leg swelling, on diuretic Neurologic: No weakness, numbness/tingling, or balance problems Psychiatric: No anxiety or depression Skin: No rash or itch Physical Exam Physical Exam: General: awake, alert, no apparent distress Head: Normocephalic, atraumatic ENT: PERRL, EOMI, no pharyngeal exudate, mucous membranes moist Chest: Clear to auscultation, on room air, no adventitious breath sounds Cardiac: Regular rate and rhythm, no murmur, no JVD, normal peripheral pulses, good capillary refill Abdominal: NABS x 4 quadrants, soft, nondistended, nontender to palpation, no rebound or guarding Extremities: Normal inspection, no peripheral edema or erythema, calfs nontender to palpation Psych: Normal mood and affect Neuro: AAO x 3, strength intact bilaterally and rated 5/5, no motor deficits, speech is clear, no peripheral sensory deficits Results & Data Results & Data Vital Signs (Past 12 Hours) Vital Signs Temp Pulse Pulse Resp BP BP Pulse Ox 01/07/24 17:01 80 20 154/77 H 95 01/07/24 16:47 77 01/07/24 16:24 78 20 163/89 H 95 01/07/24 16:24 94 01/07/24 13:59 36.3 C L 89 18 154/105 H 97 O2 Del Method 01/07/24 17:01 Room Air 01/07/24 16:47 01/07/24 16:24 Room Air 01/07/24 16:24 Room Air 01/07/24 13:59 Room Air Laboratory Results 01/07/24 01/07/24 16:58 14:32 WBC 9.80 RBC 5.70 Hgb 16.8 Hct 47.6 MCV 83.5 MCH 29.5 MCHC 35.3 RDW Std Deviation 40.3 RDW Coeff of Karmen 13.3 Plt Count 228 MPV 9.7 Immature Gran % (Auto) 0.6 Neut % (Auto) 64.7 Lymph % (Auto) 22.7 [place] % (Auto) 9.4 Eos % (Auto) 2.0 Baso % (Auto) 0.6 Neut # (Auto) 6.34 Lymph # (Auto) 2.22 [place] # (Auto) 0.92 H Eos # (Auto) 0.20 Baso # (Auto) 0.06 Immature Gran # (Auto) 0.06 PT 10.5 INR 1.0 APTT 26 PTT Ratio 0.9 Sodium 140 Potassium 3.7 Chloride 104 Carbon Dioxide 25 Anion Gap 11 BUN 17 Creatinine 0.80 Est Cr Clr Drug Dosing Not Reportable Est GFR ( Amer) 115.7 Est GFR (Non-Af Amer) 99.9 BUN/Creatinine Ratio 21.3 H Glucose 110 H Calcium 9.2 Total Bilirubin 0.8 AST 27 ALT 37 Alkaline Phosphatase 72 Troponin I High Sens 3.9 4.5 Total Protein 7.5 Albumin 4.7 Globulin 2.8 Albumin/Globulin Ratio 1.7 Lipase 21 Diagnostic Findings Chest X-Ray 01/07/24 14:01 XR chest 1V not portable CLINICAL HISTORY: Chest pain, nonspecific TECHNIQUE: Single frontal radiograph of the chest was obtained. Comparison: Comparison is made to chest and abdomen radiograph 01/13/2013 FINDINGS: No lines and tubes are seen. The cardiomediastinal silhouette is normal. The lungs are clear. No evidence of pleural effusion or pneumothorax. IMPRESSION: No acute chest disease. ACT 112: Negative or not required by law. Electronically signed by: Tashi Saucedo M.D. 01/07/2024 2:53 PM ECG Additional Comments: Reviewed personally Code Status & VTE Plan Code Status Full code - discussed with pt and family at bedside Supervising Physician Co-Signing Physician Notes I have seen and discussed the case with the collaborating TETE. I agree with the above H&P. I have reviewed and confirmed the patients medical history, the findings on physical examination, and the patients diagnosis and treatment plan with Lisa EPSTEIN and agree with the information documented. In short, Mr. Hansen is a 58 year old gentleman with history of HTN, HLD, DM, and left shoulder arthritis s/p left arthroscopy/distal clavicle resection who is being admitted for ACS r/o. Patient sent to ED per primary. Patient reports a left-sided "electrical" sensation along rib margins and across sternum. Endorsed 1 episode of nausea, but notes nausea is chronic 2/2 losartan he suspects. Patient is not reproducible. Pain is not positional. Pain not on exertion. Random, at rest. 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 Recent URI s/p antibiotics last month. Labs trops negative x2. EKG reviewed and looks similar to prior in 2021, no ischemic changes noted. GENERAL APPEARANCE: AxOx4, generally well-appearing M, no acute distress. HEENT: NC, AT. MMM. EOMI, clear conjunctiva, oropharynx clear. NECK: Supple without lymphadenopathy. No stiffness or restricted ROM. HEART: Normal rate and regular rhythm, normal S1/S1, no m/r/g. chest unremarkable, no tenderness to palpation LUNGS: CTAB, moving air well. No crackles or wheezes are heard. ABDOMEN: Soft, nontender, nondistended with good bowel sounds heard. EXTREMITIES: Without cyanosis, clubbing or edema. NEUROLOGICAL: Grossly nonfocal. Alert and oriented, moving all 4 extremities. CN not formally tested but appear grossly intact. Skin: Warm and dry without any rash. #Chest pain, atypical v noncardiac Prior stress imaging 2013, negative Not substernal, not exertional, not relieved with rest. Seems more MSK; however, multiple risk factors (DM, HTN, HLD, obesity) Stefani 65, Heart Score 4 (risk factors, ?LVH on ekg, age) recommend observation -Repeat serial ekg, trop -Monitor on tele -NPO, ?stress test in am ECHO A1c and lipid panel in am Resume home medications Rest of plan as above I have reviewed the advanced practitioner's documentation, and I agree with, and take responsibility for the plan of care I spent a total of 35 minutes coordinating, documenting, and providing care for this patient excluding time spent in the performance of separately billed services. All of the aforementioned completed outside of collaborating with the assigned physician team assistant for a full treatment plan.
[2024-01-07] MEDS ORDERED: GLUCAGON FOR INJ 1 MG VIAL SQ PRN (20:22)
[2024-01-07] MEDS ORDERED: GLUCOSE 10 TAB/TUBE PO PRN (20:22)
[2024-01-07] MEDS ORDERED: NAPROXEN 250 MG TAB PO PRN (20:22)
[2024-01-07] MEDS ORDERED: ACETAMINOPHEN 325 MG TAB PO PRN (20:22)
[2024-01-07] MEDS ORDERED: GLUCOSE 40% GEL 15 GM TUBE PO PRN (20:22)
[2024-01-07] MEDS ORDERED: NITROGLYCERIN SL 0.4 MG/TAB TAB SL PRN (20:22)
[2024-01-07] MEDS ORDERED: ONDANSETRON INJ 2 MG/ML 2 ML VIAL IV PRN (20:22)
[2024-01-07] MEDS ORDERED: CARBOHYDRATES FOR HYPOGLYCEMIA PO PRN (20:22)
[2024-01-07] MEDS ORDERED: DEXTROSE 50% 50 ML SYRINGE IV PRN (20:22)
[2024-01-07] MEDS: LOSARTAN POTASSIUM 25 MG TAB PO SCH (21:08)
[2024-01-07] MEDS ORDERED: Nursing to Pharmacy Communication SCH (21:15)
[2024-01-07] MEDS: INSULIN ASPART PER UNIT CHARGE SC SCH (23:52)
[2024-01-08 06:29] LABS: Hematocrit (blood only) 48.8 % (42.0-52.0); Hemoglobin 16.5 g/dl (14.0-18.0); Mean Corpuscular Hemoglobin 29.3 pg (25.0-34.0); Mean Corpuscular Hgb Conc 33.8 g/dL (32.0-36.0); Mean Corpuscular Volume 86.7 fL (80.0-100.0); Mean Platelet Volume 9.8 fL (9.4-12.4); Platelet Count 232 K/uL (130-400); RDW Coefficient of Variation 13.6 % (11.5-14.5); RDW Standard Deviation 42.5 fL (36.4-46.3); Red Blood Count 5.63 M/uL (4.70-6.10); White Blood Count 9.53 K/ul (4.8-10.8)
[2024-01-08 06:50] LABS: Calcium 9.1 mg/dl (8.6-10.3); Chol HDL Ratio 4.3 (0-5); Creatinine Clr Calc Pharmacy 133.1 ml/min; Est GFR (African American) 115.7 ml/min; Est GFR (Non-African American) 99.9 ml/min; Magnesium 2.1 mg/dl (1.7-2.4)
--- NOTE | 2024-01-08 07:51 | Cardiology Consultation ---
Date of Consultation January 08, 2024 Assessment & Plan (1) Chest pain: (2) Hypertension: (3) HLD (hyperlipidemia): Plan IMPRESSION: 58-year-old male who presented to [facility] emergency department due to intermittent chest pains over the last month or so. High-risk for ASCVD given male, diabetes, hypertension, dyslipidemia. Cardiac workup has been unremarkable thus. Does not have acute ST segment changes on EKG, but does have nonspecific findings over prior EKGs. High-sensitivity troponin negative x 4. Echocardiogram: Normal LVEF of 55-60%, mild concentric LVH, no WMA. No significant valve disease. Questionable echodensity at the distal aortic arch/prox descending thoracic aorta-- questionable focal arthrosclerotic plaque. CTA of the chest: 1. No thoracic aortic dissection. Normal caliber thoracic aorta without atherosclerotic plaque. 2. No acute intrathoracic findings PLAN: Chest pain: 1. Remain NPO for possible dobutamine stress echo later this morning. 2. Continue ASA 81 mg daily 3. Questionable component of GERD-- takes pantoprazole Hypertension: 1. Blood pressures slightly labile. Intermittent elevated readings inpatient-- consider increasing Losartan to 50 mg daily Hyperlipidemia: LDL borderline controlled, 97. LDL goal now under 70 given arthrosclerotic plaque in aorta. 1. Increase atorvastatin to 40 mg daily Overall recommend risk reduction with improvement in blood pressures, hyperlipidemia and good control of diabetes. Weight loss would be highly recommended also. Case discussed with Dr. Daley-- Further recommendations pending eval. I spent a total of 45 minutes on the date of service in preparation, delivery, and documentation of the care provided to the patient excluding any time spent in the performance of separately billed services. LIONEL Bae Department of Cardiology, [facility] This chart was completed in part utilizing Speech Voice Recognition Software. Grammatical errors, random word insertions, pronoun errors, and incomplete sentences are an occasional consequence of this system due to software limitations, ambient noise, and hardware issues. Any formal questions or concerns about the content, text, or information contained within the body of this dictation should be directly addressed to the provider for clarification. Supervising Physician Co-Signing Physician Notes Attending attestation: Case reviewed with the advanced practitioner. I have personally performed a history and physical examination on the patient. I have reviewed the advanced practitioner's documentation on the date of service referenced in note, and I agree with, and take responsibility for the plan of care. 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 CT angiogram of the thoracic aorta revealed normal caliber of the thoracic aorta, no dissection, no atherosclerotic plaque noted on contrast images. Given the findings on the echocardiogram and his overall risk factors, recommend titrating statin for LDL goal less than 70. As noted, patient with chest discomfort, atypical for angina, but certainly has risk factors. Family history notable for aortic valve disease in his father and brother. His aortic valve appears trileaflet with no significant aortic stenosis or regurgitation. Plan for proceeding with a dobutamine stress echocardiogram. Patient feels he build to walk on a treadmill, however his body mass index is 40 kg/m and his echocardiogram images are technically limited and I do not think we would get a study of technically adequate quality with exercise and therefore we will default to a dobutamine stress echocardiogram. I spent a total of 20 minutes coordinating, documenting, and providing care for this patient excluding time spent in the performance of separately billed services or time spent by another provider. Naun Daley DO History of Present Illness Reason for Consultation: Chest pain Requesting Physician: Genoveva Acuña Attending Physician: Cal Kessler MD History of Present Illness 58-year-old male presented to [facility] emergency department yesterday due to symptoms of chest pain. Patient has been having intermittent episodes of chest discomfort. Symptoms initially started under his left shoulder blade but then started to develop a dull ache in his left chest. On Friday, 01/05 patient was driving his to work and had 3-4 episodes of a sharp chest discomfort that made him nauseous. 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 Resolved spontaneously after 30 minutes. Of note, he did have recent URI symptoms with intermittent cough and sinus drainage since the holidays. Between October and November he was treated with steroids, antibiotics and an inhaler. Inpatient EKG showed normal sinus rhythm with a left anterior fascicular block and poor R wave progression through the precordium. Improved on repeat EKG this a.m. High-sensitivity troponins negative x 4. Echocardiogram: Normal LVEF of 55-60%, mild concentric LVH, no WMA. No significant valve disease. Questionable echodensity at the distal aortic arch/prox descending thoracic aorta-- questionable focal arthrosclerotic plaque. CTA of the chest: 1. No thoracic aortic dissection. Normal caliber thoracic aorta without atherosclerotic plaque. 2. No acute intrathoracic findings. LDL 97, on Atorvastatin Blood pressures have been intermittently hypertensive. He is maintained on losartan 25 mg daily. Upon entrance into the room patient resting comfortably in bed. at bedside. Continues to have a constant dull chest discomfort that he describes as more of an annoyance at this point. No shortness of breath. Denies palpitations. No further nausea or vomiting. No lightheadedness or dizziness. No orthopnea, PND, or increased lower extremity edema. No fever, chills, cough, hematochezia, melena, or hemoptysis. Denies previous myocardial infarction, cardiac catheterization, coronary artery bypass grafting, a history of congestive heart failure, valvular disease or rheumatic fever, or history of arrhythmia. No daily tobacco use but occasionally has a cigar once a month. Social alcohol use. No drug use. 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 Works at a local [employer]. Describes himself is physically active but has noticed a recent decline in his overall functional capacity/energy level. Past medical history: Hypertension Dyslipidemia Type 2 diabetes Allergies Allergy/AdvReac Type Severity Reaction Status Date / Time bee venom protein (honey bee) Allergy Unknown TIGHTNESS Verified 01/07/24 17:06 IN CHEST, USED BENADRYL TO TX - SEE NOTES lisinopril AdvReac Unknown coughing Verified 01/07/24 17:06 spells Home Medications Medication Instructions Recorded Confirmed Type aspirin 81 mg tablet,delayed 81 mg PO QAM 08/05/22 01/07/24 History release atorvastatin 20 mg tablet 20 mg PO QAM 08/05/22 01/07/24 History empagliflozin 25 mg tablet 25 mg PO QAM 08/05/22 01/07/24 History (Jardiance) furosemide 20 mg tablet 20 mg PO QAM Fluid Retention 08/05/22 01/07/24 History metformin 500 mg tablet 2,000 mg PO HS 08/05/22 01/07/24 History pantoprazole 40 mg tablet,delayed 40 mg PO QAM 08/05/22 01/07/24 History release cyanocobalamin (vitamin B-12) 1,000 mcg PO QAM 01/07/24 01/07/24 History 1,000 mcg tablet (Vitamin B-12) losartan 25 mg tablet 25 mg PO QAM 01/07/24 01/07/24 History mecobalamin (vitamin B12) 1,000 1,000 mcg PO DAILY 01/07/24 01/07/24 History mcg chewable tablet (B12 Active) naproxen 500 mg tablet 500 mg PO BID PRN Pain 01/07/24 01/07/24 History Patient History Medical History (Updated 01/08/24 @ 09:[address]) Diabetes mellitus, type 2 HLD (hyperlipidemia) History of anesthesia reaction KEPT A LITTLE LONGER BECAUSE O2 WAS A LITTLE LOW - [place] , [place] (2016 OR 2017) DR KC Nausea after anesthesia History of small bowel obstruction History of kidney stones Sleep apnea CPAP History of high blood pressure HX MED FOR/SINCE RETIRED MED D/C'D ..NO CURRENT MED FOR Nail fungus Acid reflux Surgical History History of endoscopy History of colonoscopy History of surgery RIGHT BICEP History of lithotripsy [place] teeth removed HX History of surgery CYST REMOVAL History of placement of ear tubes X2 1969'S Family History Grandfather (Maternal) Family history of throat cancer Grandfather (Paternal) Family history of colon cancer Uncle Family history of colon cancer Uncle Family history of colon cancer Social History Smoking Status: Never smoker Tobacco Type: Cigars Cigarettes Per Day: 0; Smoking End Date: occasional cigar smoker; Second Hand Exposure: No; Do You Dip or Chew Tobacco: No; Tobacco Cessation Education Requested by Patient: No Hx Alcohol Use: No Hx Substance Use: No Preferred Language: Upper Sorbian Communication Ability: Effective Relay Motorman Required: No Beliefs That Will Affect Care: None Current Living Situation: Spouse Other Information That Helps Us Care for You: No Feels Safe at Home: Yes Safety Concerns: Feels Safe At This Time Assistive Devices: Glasses Review of Systems Review of Systems: All systems reviewed & are unremarkable except as noted in HPI & below Physical Exam Constitutional: WD/WN, vitals as above Eyes: PERRL, conjunctivae normal, anicteric sclerae Neck: normal visual inspection and trachea midline Respiratory: normal respiratory effort, lungs clear to auscultation Cardiovascular: RRR, no murmur, no edema Heart Sounds: normal S1 and normal S2; no murmur Vessels: no JVD Extremities: no edema Gastrointestinal (Abdomen): normal bowel sounds, soft, nontender, no hepatosplenomegaly Skin: no rashes, warm and dry Neurologic: PERRL, EOMI, accommodation nl, no face palsy, no dysarthria Psychiatric: A+Ox3, euthymic affect Results & Data Vital Signs (Past 12 Hours) Vital Signs Temp Pulse Pulse Resp BP Pulse Ox O2 Del Method 01/08/24 03:03 36.6 C 78 18 149/85 H 94 Room Air, CPAP 01/08/24 02:45 74 11 L 95 01/07/24 23:54 CPAP 01/07/24 22:56 CPAP 01/07/24 22:51 36.6 C 76 18 140/72 94 BiPAP 01/07/24 22:43 69 01/07/24 22:30 76 15 94 01/07/24 20:32 36.8 C 77 18 126/91 95 Room Air 01/07/24 20:22 Room Air Laboratory Results Cardiac Enzymes 01/07/24 01/07/24 01/07/24 Range/Units 14:32 16:58 21:44 AST 27 (13-39) U/L Troponin I High Sens 4.5 3.9 4.3 (0-20) pg/ml Coagulation 01/07/24 Range/Units 14:32 PT 10.5 (9.0-12.0) Seconds APTT 26 (21-31) Seconds Lipids 01/08/24 Range/Units 05:58 Triglycerides 130 (0-150) mg/dl Cholesterol 160 (0-200) mg/dl HDL Cholesterol 37 mg/dl Cholesterol/HDL Ratio 4.3 (0-5) CBC 01/07/24 01/08/24 Range/Units 14:32 05:58 WBC 9.80 9.53 (4.8-10.8) K/ul RBC 5.70 5.63 (4.70-6.10) M/uL Hgb 16.8 16.5 (14.0-18.0) g/dl Hct 47.6 48.8 (42.0-52.0) % Plt Count 228 232 (130-400) K/uL Neut # (Auto) 6.34 (1.40-6.50) K/uL Lymph # (Auto) 2.22 (1.20-3.40) K/uL [place] # (Auto) 0.92 H (0.11-0.59) K/uL Eos # (Auto) 0.20 (0.00-0.50) K/uL Baso # (Auto) 0.06 (0.00-0.20) K/uL Comprehensive Metabolic Panel 01/07/24 01/08/24 Range/Units 14:32 05:58 Sodium 140 138 (136-145) mmol/L Potassium 3.7 4.0 (3.5-5.1) mmol/L Chloride 104 102 (98-107) mmol/L Carbon Dioxide 25 28 (21-32) mmol/L BUN 17 16 (6-23) mg/dl Creatinine 0.80 0.80 (0.6-1.4) mg/dl Glucose 110 H 142 H (70-99(Fasting)) mg/dl Calcium 9.2 9.1 (8.6-10.3) mg/dl AST 27 (13-39) U/L ALT 37 (7-52) U/L Alkaline Phosphatase 72 (34-104) U/L Total Protein 7.5 (6.0-8.3) gm/dl Albumin 4.7 (3.4-5.0) gm/dl Intake and Output 01/07/24 01/08/24 01/08/24 22:59 06:59 14:59 Intake Total 100 / 100 Balance 100 / 100 Intake: Other 100 / 100 Other: # Unmeasured Voids 3 Weight 122.1 kg Weight Measurement Method Built in [facility] (1) Chest pain Chest pain type: unspecified Qualified Code(s): R07.9 - Chest pain, unspecified (2) Hypertension Hypertension type: primary hypertension Qualified Code(s): I10 - Essential (primary) hypertension (3) HLD (hyperlipidemia) Hyperlipidemia type: mixed hyperlipidemia Qualified Code(s): E78.2 - Mixed hyperlipidemia
[2024-01-08] MEDS: LOSARTAN POTASSIUM 25 MG TAB PO SCH (08:38)
[2024-01-08] MEDS: ASPIRIN 81 MG ECTAB PO SCH (08:38)
[2024-01-08] MEDS: CYANOCOBALAMIN (B-12) 500 MCG TABLET PO SCH (08:38)
[2024-01-08] MEDS: ATORVASTATIN 20 MG TAB PO SCH (08:38)
[2024-01-08] MEDS: PANTOprazole 40 MG TAB PO SCH (08:38)
[2024-01-08] MEDS: FUROSEMIDE 20 MG TAB PO SCH (08:38)
[2024-01-08] MEDS: OPTIRAY 320 125ml IV ONE (08:56)
[2024-01-08] MEDS ORDERED: NON-FORMULARY MEDICATION (Mecobalamin (Vitamin B12) [B12 Active] 1,000 mcg Tablet,Chewable PO SCH (09:00)
[2024-01-08 09:02] LABS: Estimated Average Glucose 180 mg/dl; Hemoglobin A1C 7.9 % (4.5-5.6)
--- NOTE | 2024-01-08 09:23 | CT Scan Report ---
CT ANGIOGRAPHY OF THE CHEST CLINICAL HISTORY: Chest pain and atherosclerosis of aortic arch/desc aorta. COMPARISON STUDY: Chest CT July 04, 2015. Chest radiograph January 07, 2024. TECHNIQUE: Helical axial images of the chest were obtained during arterial phase following intravenou s injection 112 cc of Optiray 320 IV. Sagittal and coronal reconstructions were viewed as well as max imal intensity projections on an independent 3-D workstation. Automated exposure control was utilized for the study. A dose lowering technique was utilized adhering to the principles of ALARA. FINDINGS: The caliber of the thoracic aorta is normal. There is no thoracic aortic dissection. Size o f the heart is normal. There is no pericardial effusion. No plaque within the thoracic aorta is prese nt. There is no thoracic lymphadenopathy. Central airways are patent. There is no consolidation to horn ggest pneumonia. Groundglass opacities favor atelectasis. No central or lobar pulmonary emboli are id entified. Segmental and subsegmental pulmonary arteries are suboptimally assessed on this exam. There is hepatic steatosis. Mild splenomegaly is unchanged from abdominal CT of January 13, 2013. IMPRESSION: 1. No thoracic aortic dissection. Normal caliber thoracic aorta without atherosclerotic plaque. 2. No acute intrathoracic findings. 3. Hepatic steatosis. ACT 112: Negative or not required by law. Electronically signed by: Anand Vargas M.D. 01/08/2024 9:20 AM
--- OUTSIDE RECORDS SUMMARY | 2024-01-08 12:25 | External Medical Summary | Summary of Care ---
Author Name Unknown Organization [facility] Address [address] [facility] [address] Phone [phone] Care Team Providers Care Compressor Operator Portable Name Role Phone Weston Centeno MD Primary Care Provider + Reason for Visit * Reason Comments Medication Refill Encounter Details Date Type Department Care Team (Late st Contact Info) Description 12/05/2023 Refill Family [facility] [address] [facility] [place] [address] Paul Martinez MD [address], [place] [id number] Allergies Active Allergy Reactions Criticality Noted Date Comments Bee Stings 12/23/2007 Edema/local area, "chest tightness" Lisinopril Cough Low 10/05/2014 documented as of this encounter (statuses as of 12/06/2023) Medications Medication Sig Dispensed Refills Start Date End Date Status EXCEDRIN MIGRAINE 250-250-65 MG PO TABS used as needed 0 Active Aspirin 81 MG Oral Tablet Delayed Release (Aspirin Low Dose) TAKE ONE TABLET BY MOUTH EVERY MORNING 100 Tablet 3 04/11/2023 4 Active Empagliflozin 25 MG Oral Tablet (Jardiance)Indica tions:Type 2 diabetes mellitus with hemoglobin A1c goal of less than 8.0% (HCC) TAKE 1 TABLET BY MOUTH IN THE MORNING. 90 Tablet 3 05/22/2023 4 Active Fluocinonide 0.05 % External Gel (Lidex) Apply a small amount to dry area 4 times daily. 30 g 0 05/29/2023 Active Losartan Potassium 25 MG Oral Tablet (Cozaar) Take 1 Tablet by mouth in the morning. 30 Tablet 5 08/26/2023 Active GNP Vitamin B-12 1000 MCG Oral Tablet Extended Release (Cyanocobalamin ER) Take 1,000 mcg by mouth in the morning. 60 Tablet 3 08/28/2023 Active Clobetasol Propionate 0.05 % External Ointment (Temovate)Indicat ions:Rash and nonspecific skin eruption APPLY TOPICALLY TO AFFECTED AREA 2 TIMES A DAY FOR UP TO 2 WEEKS. 60 g 0 09/25/2023 4 Active Gabapentin 300 MG Oral Capsule (Neurontin) Take 1 Capsule by mouth in the morning and 1 Capsule at noon and 1 Capsule before bedtime. 90 Capsule 3 10/11/2023 Active Additional Information Patient not taking.Reported on 11/18/2023 Atorvastatin Calcium 20 MG Oral Tablet (Lipitor)Indicati ons:Type 2 diabetes mellitus with hemoglobin A1c goal of less than 8.0% (HCC) TAKE ONE TABLET BY MOUTH IN THE MORNING 90 Tablet 1 11/03/2023 4 Active metFORMIN HCl ER 500 MG Oral Tablet Extended Release 24 Hour (Glucophage XR)Indications:Ty pe 2 diabetes mellitus with hemoglobin A1c goal of less than 8.0% (HCC) TAKE 4 TABLETS BY MOUTH DAILY WITH DINNER 360 Tablet 1 11/03/2023 Active Furosemide 20 MG Oral Tablet (Lasix) TAKE ONE TABLET BY MOUTH EVERY MORNING 90 Tablet 1 11/03/2023 Active Pantoprazole Sodium 40 MG Oral Tablet Delayed Release (Protonix)Indicat ions:Gastroesopha geal reflux disease without esophagitis TAKE ONE TABLET BY MOUTH EVERY MORNING BEFORE FIRST MEAL OF THE DAY - DO NOT CUT/CRUSH/CHEW 90 Tablet 1 11/03/2023 Active ProAir HFA 108 (90 Base) MCG/ACT Inhalation Aerosol SolutionIndicatio ns:Acute cough Inhale 2 Puffs by mouth every 4 hours as needed (cough/wheeze). 18 g 1 11/18/2023 Active glipiZIDE 5 MG Oral Tablet (Glucotrol)Indica tions:Type 2 diabetes mellitus with hemoglobin A1c goal of less than 8.0% (HCC) Take 1 tablet by mouth 30 minutes before largest meal while on prednisone. 5 Tablet 0 11/21/2023 Active guaiFENesin-Codei ne 100-10 MG/5ML Oral Syrup (Robitussin AC) Take 5 mL by mouth every 4 hours as needed for Cough. 120 mL 0 11/21/2023 Active Naproxen 500 MG Oral Tablet (Naprosyn) Take 1 Tablet by mouth 2 times a day as needed for Pain. With food 60 Tablet 1 12/06/2023 Active Naproxen 500 MG Oral Tablet (Naprosyn) Take 1 Tablet by mouth 2 times a day as needed for Pain. With food 40 Tablet 1 10/11/2023 4 Discontinue d(Refill) documented as of this encounter (statuses as of 12/06/2023) Active Problems Problem Noted Date Diagnosed Date History of 2019 novel coronavirus disease (COVID -19) 08/09/2022 Gastroesophageal reflux disease without esophagi tis 01/07/2022 Well adult exam 08/19/2019 Overview: works at [employer] [place] 09/04 colon WNL iqra 10y MENDOZA (obstructive sleep apnea) 06/23/2019 Periodic limb movement disorder (PLMD) 9 Recurrent major depressive disorder, in partial remission 02/09/2019 Obesity, morbid (more than 1 00 lbs over ideal weight or BMI > 40) 12/24/2018 Type 2 diabetes mellitus wit h hemoglobin A1c goal of less than 8.0% 12/04/2017 Overview: 2018 new dx.a1c 6.6 HTN, goal below 130/80 04/29/2016 Overview: Per HTN Protocol Erectile dysfunction 07/25/2014 Pulmonary nodule 09/01/2012 Testosterone insufficiency 01/02/2012 Overview: Tried T gel 2011--didn't help ED, stopped. Dyslipidemia 01/01/2010 Migraine without aura and wi thout status migrainosus, not intractable 08/14/2000 documented as of this encounter (statuses as of 12/06/2023) Resolved Problems Problem Noted Date Diagnosed Date Resolved Date Nocturnal hypoxemia 06/23/2019 01/07/20 22 Biceps rupture, distal, righ t, initial encounter 08/17/2017 12/24/2018 Prediabetes 12/02/2016 12/04/2017 Hypertension goal BP (blood pressure) < 140/80 11/07/2014 05/02/2016 Overview: Per HTN Protocol Cutaneous skin tags 09/21/2014 12/02/19 17 Multiple pigmented nevi 09/21/201412/19 Calculus of kidney 07/25/2014 9 Overview: Historical. Palpitations 09/01/2012 12/24/2018 Malaise and fatigue 01/02/2012 12/02/19 17 BMI 35-39 ISOLATED (SEE ACTUAL BMI) 04/30/2010 12/24/2018 Overview: Per Obesity Protocol, #19 Dyslipidemia, goal to be determined 11/02/2009 01/01/2010 Overview: Per Lipid Taxonomy. Toxic effect of venom 01/22/20082018 Overview: nausea, chest tightness; no hives, anaphylaxis ICD-10 update of inactive term Major depressive disorder 11/12/2005 Overview: ICD-10 update of inactive term PURE HYPERCHOLESTEROLEM 10/28/200310/17 Overview: Per Lipid Taxonomy. Chronic rhinitis 08/14/2000 01/07/2022 Asthma with severity to be determined 09/01/2012 Overview: ICD-10 update of inactive term documented as of this encounter (statuses as of 12/06/2023) Immunizations Name Administration Dates Next Due COVID-19 mRNA, LNP-s, No Pre serve, 2-Dose Series ([employer]) 11/13/2021,01/02/2021,12/08/2020 Covid-19, Mrna, Lnp-s, Pf, B ivalent, 30 Mcg, IM, 12 yrs and above (NsGene) 11/20/2022 H1N1 2009 Influenza, IM 01/01/2010 Hepatitis B, 20+ yrs 05/17/1998,12/18/1997,11/17 Pneumococcal Conjugate Vacci ne, 20-valent (Peedupo09) 01/29/2023 Pneumococcal Polysaccharide PPV23 (Pneumovax) 06/29/2009 Seasonal Influenza, PF, 6 M & above, IM , (FluLaval or Fluzone) 08/23/2021,08/19/2019,08/12/2018 Seasonal Influenza, Quadriva lent, No Preserve, IM 12/02/2016 Seasonal Influenza, Split, I IV3, With Preserve, Inj 09/17/2015,09/05/2014,09/01/2013,09/15,08/31/2009 TDAP (age 11 and older)(Adacel) 06/02/2016,03/17 Zoster Vaccine Recombinant (Shingrix) 07/13/2021 ,03/28/2021 documented as of this encounter Social History Tobacco Use Types Packs/Day Years Used Date Smoking Tobacco: Light Smoker Cigars Last attempted to quit: 11/17/1996 Smokeless Tobacco: Never Comments:has an occ. cigar 3 -4 times a year Alcohol Use Standard Drinks/Week Comments Yes 0 (1 standard drink = 0.6 oz pur e alcohol) 5/month PHQ-2 Answer Date Recorded PHQ Adult Total Score 0 01/29/2023 Hunger Vital Sign Answer Date Recorded Within the past 12 months, y ou worried that your food would run out before you got the money to buy more. Never true 01/16/20 23 Within the past 12 months, t he food you bought just didn't last and you didn't have money to get more. Never true 01/15/2023 Sex and Gender Information Value Date Recorded Sex Assigned at Male 01/27/2020 8:28 AM EDT Gender Identity Male 01/27/2020 8:28 AM EDT Sexual Orientation Straight 01/27/2020 8: 28 AM EDT Job Start Date Occupation Industry Not on file Not on file Not on file documented as of this encounter Miscellaneous Notes * Telephone Encounter - Weston Centeno MD - 12/06/2023 8:48 PM ESTSigned Prescriptions: Disp Refills Naproxen 500 MG Oral Tablet (Naprosyn) 60 Tab*1 Sig: Take 1 Tablet by mouth 2 times a day as needed for Pain. With food Authorizing Provider: WESTON CENTENO * Telephone Encounter - Cesilia Gonzalez [facility] - 12/06/2023 2:26 PM EST Pending Prescriptions: Disp Refills Naproxen 500 MG Oral Tablet (Naprosyn) 40 Tab*1 Sig: Take 1 Tablet by mouth 2 times a day as needed for Pain. With food * Telephone Encounter - Cesilia Gonzalez RP - 12/06/2023 2:26 PM EST Forwarding to provider for further evaluation. Please approve and authorize additional refills if you would like patient to continue this medication. Thank you, Cesilia Gonzalez, RyanneD. Clinical Pharmacist [facility] ([facility]) (formerly Telepharmacy) 12/06/2023, 2:26 PM documented in this encounter Plan of Treatment Upcoming Encounters Date Type Department Care Team (Late st Contact Info) Description 02/02/2024 8:40 AM EDT Office Visit [facility] [address] [place] [address] Diana Malcolm CRNP [address] [place] [phone] 06/15/2024 10:00 AM EDT Office Visit Sleep Disorders Ctr [facility] [address] [place] [phone] Cathy Mata DO [address] [place] [address] 08/05/2024 8:40 AM EDT Office Visit Family Practice [facility] [address] [place] [address] Weston Centeno MD [address] [place] [phone] Scheduled Procedures Name Priority Associated Diagnoses Date/Ti me COLONOSCOPY FLEXIBLE PROXIMA L DIAGNOSTIC Recall Special screening for malignant neoplasms, colon Health Maintenance Due Date Last Done Comments DISCUSS TOBACCO CESSATION (REFER TO SMARTSET #8862) 1967 Hepatitis C Screening 1985 Cologuard 2012 Fecal Occult Blood Test 2012 Sigmoidoscopy 2012 Diabetic Foot Exam 07/13/2022 07/13/2021, 0 01/27/2020, 02/09/2019, Additional history exists COVID-19 Vaccine ( season) 2023 11/20/2022, 11/13/2021, 01/02/2021, Additional history exists Influenza Vaccine (FLU shot) (#1) 2023 08/23/2021, 08/19/2019, 08/12/2018, Additional history exists HbA1c 01/28/2024 07/30/2023, 0 05/2022, 01/16/2022, Additional history exists Depression Screening 01/30/2024 01/29/2023 Albumin/Creatinine Ratio 07/30/2024 023, 07/24/2022, 01/16/2022, Additional history exists B-12 07/30/2024 07/30/2023, 030 12/2021, 03/05/2021, Additional history exists GFR 07/30/2024 07/30/2023, 0 05/2022, 04/18/2022, Additional history exists Diabetic Eye Exam 11/18/2024 11/18/2023 (Do ne elsewhere), 07/25/2022, 04/09/2021, Additional history exists DTaP,Tdap,and Td Vaccines (3 - Td or Tdap) 06/02/2026 06/02/2016, 03/17/2005, 12/18/1998 Lipid Panel 07/30/2028 07/30/2023, 05/2022, 01/16/2022, Additional history exists Colonoscopy 09/22/2029 09/22/2019, 04/2019, 03/11/2013, Additional history exists Colorectal Cancer Screening 09/22/2029 Hepatitis B Completed 05/17/1998, 11/1997, 11/17/1997 Zoster Vaccines Completed 07/13/2021, 03/28/2021 Pneumococcal Vaccine: Pediatrics (0 to 5 Years) and At-Risk Patients (6 to 64 Years) Completed 01/29/2023, 06/29/2009 GARDASIL-HPV IMMUNIZATION SERIES Aged Out No longer eligible based on patient's age to complete this topic MENINGOCOCCAL (MENACTRA/MENVEO) Aged Out No longer eligible based on patient's age to complete this topic documented as of this encounter Medical Devices Not on filedocumented as of this encounter Care Teams Compressor Operator Portable Relationship Specialty Start Date End Date Weston Centeno MD [address] [place] [phone] PCP - General Family Medicine 04/29/17 documented as of this encounter
--- OUTSIDE RECORDS SUMMARY | 2024-01-08 12:25 | External Medical Summary | Summary of Care ---
Author Name Unknown Organization [facility] Address [address] [facility] [place] [address] Phone [phone] Care Team Providers Care Supervisor Filter Assembly Name Role Phone Weston Centeno MD Primary Care Provider + Reason for Visit * Reason Comments Medication Refill Encounter Details Date Type Department Care Team (Late st Contact Info) Description 12/05/2023 Refill Family Practice [facility] [address] [place] [address] Weston Centeno MD [address] [place] [id number] Type 2 diabetes mellitus with hemoglobin A1c goal of less than 8.0% (HCC) Allergies Active Allergy Reactions Criticality Noted Date [...] MOUTH EVERY MORNING 100 Tablet 3 04/11/2023 04/10/2024 Active Empagliflozin 25 MG Oral Tablet (Jardiance)Indicat ions:Type 2 diabetes mellitus with hemoglobin A1c goal of less than 8.0% (HCC) TAKE 1 TABLET BY MOUTH IN THE MORNING. 90 Tablet 3 05/22/2023 05/21/2024 Active Fluocinonide 0.05 % External Gel (Lidex) [...] Active Clobetasol Propionate 0.05 % External Ointment (Temovate)Indicati ons:Rash and nonspecific skin eruption APPLY TOPICALLY TO AFFECTED AREA 2 TIMES A DAY FOR UP TO 2 WEEKS. 60 g 0 09/25/2023 09/24/2024 Active Gabapentin 300 MG Oral Capsule (Neurontin) Take 1 Capsule by mouth in the morning and 1 Capsule at noon and 1 Capsule before bedtime. 90 Capsule 3 10/11/2023 Active Additional Information Patient not taking.Reported on 11/18/2023 Naproxen 500 MG Oral Tablet (Naprosyn) Take 1 Tablet by mouth 2 times a day as needed for Pain. With food 40 Tablet 1 10/11/2023 Active Additional Information Patient not taking.Reported on 11/18/2023 Atorvastatin Calcium 20 MG Oral Tablet (Lipitor)Indicatio ns:Type 2 diabetes mellitus with hemoglobin A1c goal of less than 8.0% (HCC) TAKE ONE TABLET BY MOUTH IN THE MORNING 90 Tablet 1 11/03/2023 11/02/2024 Active metFORMIN HCl ER 500 MG Oral Tablet Extended Release 24 Hour (Glucophage XR)Indications:Typ e 2 diabetes mellitus with hemoglobin A1c goal of less than 8.0% (HCC) TAKE 4 TABLETS BY MOUTH DAILY WITH DINNER 360 Tablet 1 11/03/2023 Active Furosemide 20 MG Oral Tablet (Lasix) TAKE ONE TABLET BY MOUTH EVERY MORNING 90 Tablet 1 11/03/2023 Active Pantoprazole Sodium 40 MG Oral Tablet Delayed Release (Protonix)Indicati ons:Gastroesophage al reflux disease without esophagitis TAKE ONE TABLET BY MOUTH EVERY MORNING BEFORE FIRST MEAL OF THE DAY - DO NOT CUT/CRUSH/CHEW 90 Tablet 1 11/03/2023 Active ProAir HFA 108 (90 Base) MCG/ACT Inhalation Aerosol SolutionIndication s:Acute cough Inhale 2 Puffs by mouth every 4 hours as needed (cough/wheeze). 18 g 1 11/18/2023 Active glipiZIDE 5 MG Oral Tablet (Glucotrol)Indicat ions:Type 2 diabetes mellitus with hemoglobin A1c goal of less than 8.0% (HCC) Take 1 tablet by mouth 30 minutes before largest meal while on prednisone. 5 Tablet 0 11/21/2023 Active guaiFENesin-Codein e 100-10 MG/5ML Oral Syrup (Robitussin AC) Take 5 mL by mouth every 4 hours as needed for Cough. 120 mL 0 11/21/2023 Active documented as of this encounter (statuses as of 12/06/2023) Active Problems Problem Noted Date Diagnosed Date History of 2019 novel coronavirus disease (COVID -19) 08/09/2022 Gastroesophageal reflux disease without esophagi tis 01/07/2022 Well adult exam 08/19/2019 Overview: works at [employer] 09/04 colon WNL iqra 10y MENDOZA (obstructive [...] mRNA, LNP-s, No Pre serve, 2-Dose Series ([employer]) 11/13/2021,01/02/2021,12/08/2020 Covid-19, Mrna, Lnp-s, Pf, B ivalent, 30 Mcg, IM, 12 yrs and above ([employer]) 11/20/2022 Diptheria/Tetanus Adult (TD) 12/18/1998 H1N1 2009 Influenza, IM 01/01/2010 Hepatitis B, 20+ yrs 05/17/1998,12/18/1997,11/17 Pneumococcal Conjugate Vacci ne, 20-valent ([id number]) 01/29/2023 Pneumococcal Polysaccharide PPV23 (Pneumovax) 06/29/2009 Seasonal [...] Encounter - Weston Centeno MD - 12/06/2023 8:47 PM EST How is cough doing? If improving, hold off on prednisone. If still bad, needs appt any provider or urgent care * Telephone Encounter - Weston Centeno MD - 12/06/2023 8:47 PM EST Refused Prescriptions: Disp Refills predniSONE 20 MG Oral Tablet (Deltasone) 10 Tab*0 Sig: Take 2 Tablets by mouth in the morning for 5 days. Refused By: WESTON CENTENO Reason for Refusal: Appt. Required, please call patient guaiFENesin-Codeine 100-10 MG/5ML Oral Syr*120 mL 0 Sig: Take 5 mL by mouth every 4 hours as needed for Cough. Refused By: WESTON CENTENO< BR>Reason for Refusal: Appt. Required, please call patient * Telephone Encounter - Weston Ramirez [facility] - 12/06/2023 10:49 AM EST Telepharmacy not authorized to fill for this medication per protocol. Please approve if appropriate. Pending Prescriptions: Disp Refills predniSONE 20 MG Oral Tablet (Deltasone) 10 Tab*0 Sig: Take 2 Tablets by mouth in the morning for 5 days. guaiFENesin-Codeine 100-10 MG/5ML Oral Syr*120 mL 0 Sig: Take 5 mL by mouth every 4 hours as needed for Cough. 11/18/2023 (in office), 10/22/2021 (telemedicine) 02/02/2024 If no future appointments scheduled, and last appointment is greater than a year ago, please schedule patient for a follow-up appointment Last date the medication was ordered: Pharmacy: [facility] Is this request for a controlled substance? No Urine Drug Screen:No results found for this or any previous visit. Patient Phone Numbers mobile [phone] Labs: Lab Results Component Value Date/Time CREAT 0.7 07/30/2023 01:40 PM CREAT 0.9 02/22/2020 07:04 AM POTASSIUM 4.3 07/30/2023 01:40 PM POTASSIUM 4.6 02/22/2020 07:04 AM TSH 1.23 08/26/2023 09:55 AM TSH 1.33 09/01/2012 01:40 PM LDLCALC 84 07/30/2023 01:40 PM LDLCALC 71 08/19/2019 03:57 PM LDLDIRECT NOT APPLICABLE 08/19/2019 03:57 PM ALT 27 07/24/2022 09:37 AM ALT 46 09/01/2012 01:40 PM HGBA1C 7.4 (H) 07/30/2023 01:40 PM HGBA1C 8.2 (H) 02/22/2020 07:04 AM * Telephone Encounter - Weston Ramirez [facility] - 12/06/2023 10:49 AM EST Pending Prescriptions: Disp Refills predniSONE 20 MG Oral Tablet (Deltasone) 10 Tab*0 Sig: Take 2 Tablets by mouth in the morning for 5 days. guaiFENesin-Codeine 100-10 MG/5ML Oral Syr*120 mL 0 Sig: Take 5 mL by mouth every 4 hours as needed for Cough. documented in this encounter Plan of Treatment Upcoming Encounters Date Type Department Care Team (Late st Contact Info) Description 02/02/2024 8:40 AM EDT Office Visit [facility] [address] [place] [phone] Diana Malcolm CRNP [address] [place] [address] 06/15/2024 10:00 AM EDT Office Visit [facility]tr [facility] [address] [place] [phone] Cathy Mtaa, DO [address] [place] [id number] 08/05/2024 8:40 AM EDT Office Visit Family [facility] [address] [place] [address] Weston Centeno MD [address] [place] [address] Scheduled Procedures Name Priority Associated Diagnoses Date/Ti me COLONOSCOPY FLEXIBLE PROXIMA L DIAGNOSTIC Recall Special screening for malignant neoplasms, colon Health Maintenance Due Date Last Done Comments DISCUSS TOBACCO CESSATION (REFER TO SMARTSET #4081) 1967 Hepatitis C Screening 1985 Cologuard 2012 [...] 03/05/2021, Additional history exists GFR 07/30/2024 07/30/2023, 090 05/2022, 04/18/2022, Additional history exists Diabetic Eye [...] Not on filedocumented as of this encounter Visit Diagnoses Diagnosis Type 2 diabetes mellitus with hemoglobin A1c goal of less than 8.0% (HCC) documented in this encounter Care Teams Supervisor Filter Assembly Relationship Specialty Start Date End Date Weston Centeno MD [address] [place] [id number] PCP - General Family Medicine 04/29/17 documented as of this encounter
--- OUTSIDE RECORDS SUMMARY | 2024-01-08 12:25 | External Medical Summary | Summary of Care ---
Author Name Unknown Organization [facility] Address [address] [facility] [place] [address] Phone [phone] Care Team Providers Care Lodge Attendant Name Role Phone Weston Centeno MD Primary Care Provider + Reason for Visit * Reason Comments Medication Refill Encounter Details Date Type Department Care Team (Late st Contact Info) Description 12/05/2023 Refill Family Practice [facility] [address] [place] [address] Weston Centeno MD [address] [place] [address] Type 2 diabetes mellitus with hemoglobin A1c goal of less than 8.0% (HCC) Allergies Active Allergy Reactions Criticality Noted Date Comments Bee Stings 12/23/2007 Edema/local area, "chest tightness" Lisinopril Cough Low 10/05/2014 documented as of this encounter (statuses as of 12/08/2023) Medications Medication Sig Dispensed Refills Start Date [...] as of this encounter (statuses as of 12/08/2023) Active Problems Problem Noted Date Diagnosed Date History of 2019 novel coronavirus disease (COVID -19) 08/09/2022 Gastroesophageal reflux disease without esophagi tis 01/07/2022 Well adult exam 08/19/2019 Overview: works at [employer] 09/04 colon WNL iqra 10y MENDOZA (obstructive [...] as of this encounter (statuses as of 12/08/2023) Resolved Problems Problem Noted Date Diagnosed Date [...] as of this encounter (statuses as of 12/08/2023) Immunizations Name Administration Dates Next Due COVID-19 mRNA, LNP-s, No Pre serve, 2-Dose Series (Future Fleet) 11/13/2021,01/02/2021,12/08/2020 Covid-19, Mrna, Lnp-s, Pf, B ivalent, 30 Mcg, IM, 12 yrs and above ([employer]) 11/20/2022 Diptheria/Tetanus Adult (TD) 12/18/1998 H1N1 2009 Influenza, IM 01/01/2010 Hepatitis B, 20+ yrs 05/17/1998,12/18/1997,11/17 Pneumococcal Conjugate Vacci ne, 20-valent ([id number]) 01/29/2023 Pneumococcal Polysaccharide PPV23 (Pneumovax) 06/29/2009 Seasonal [...] encounter Miscellaneous Notes * Telephone Encounter - Robyn Nunez LPN - 12/08/2023 12:27 PM EST Called pt and left a vm message to call the office. See Darryl's note below. * Telephone Encounter - Weston Centeno MD [...] * Telephone Encounter - Weston Ramirez [facility] - 12/06/2023 10:49 AM EST Telepharmacy not [...] Last date the medication was ordered: Pharmacy: [facility] Is this request for a controlled substance? No Urine Drug Screen:No results found for this or any previous visit. Patient Phone Numbers Labs: Lab Results Component Value Date/Time CREAT [...] 02/22/2020 07:04 AM * Telephone Encounter - Wseton Ramirez RPh - 12/06/2023 10:49 AM EST Pending Prescriptions: [...] Description 02/02/2024 8:40 AM EDT Office Visit [address] [place] [address] Diana Malcolm CRNP [address] [place] [address] 06/15/2024 10:00 AM EDT Office Visit [facility] Disorders [facility] [address] [place] [address] Cathy Mata DO [address] [place] [address] 08/05/2024 8:40 AM EDT Office Visit Family Practice [facility] [address] [place], [place] [phone] Weston Centeno MD [address] [place] [phone] Scheduled Procedures Name Priority Associated Diagnoses Date/Ti me COLONOSCOPY FLEXIBLE PROXIMA L DIAGNOSTIC Recall Special screening for malignant neoplasms, colon Health Maintenance Due Date Last Done Comments DISCUSS TOBACCO CESSATION (REFER TO SMARTSET #2678) 1967 Hepatitis C Screening 1985 Cologuard 2012 Fecal Occult Blood Test 2012 Sigmoidoscopy 2012 Diabetic Foot Exam 07/13/2022 07/13/2021, 0 01/27/2020, 02/09/2019, Additional history exists COVID-19 Vaccine ( season) 2023 11/20/2022, 11/13/2021, 01/02/2021, Additional history exists Influenza Vaccine (FLU shot) (#1) 2023 08/23/2021, 08/19/2019, 08/12/2018, Additional history exists HbA1c 01/28/2024 07/30/2023, 0905/2022, 01/16/2022, Additional history exists Depression Screening 01/30/2024 01/29/2023 Albumin/Creatinine Ratio 07/30/20242 023, 07/24/2022, 01/16/2022, Additional history exists B-12 07/30/2024 07/30/2023, 12/2021, 03/05/2021, Additional history exists GFR 07/30/2024 07/30/2023, 05/2022, 04/18/2022, Additional history exists Diabetic Eye [...] (HCC) documented in this encounter Care Teams Lodge Attendant Relationship Specialty Start Date End Date Weston Centeno MD [address] [place] [address] PCP - General Family Medicine 04/29/17 documented as of this encounter
--- OUTSIDE RECORDS SUMMARY | 2024-01-08 12:25 | External Medical Summary | Summary of Care ---
Author Name Unknown Organization [facility] Address [address] [facility] [place] [address] Phone [phone] Care Team Providers Care Train Director Name Role Phone Weston Centeno MD Primary Care Provider + Reason for Visit * Reason Comments Medication Refill Encounter Details Date Type Department Care Team (Late st Contact Info) Description 12/05/2023 Refill Family Practice [facility] [address] [place] [address] Weston Centeno MD [address] [place] [address] Type 2 diabetes mellitus with hemoglobin A1c [...] Well adult exam 08/19/2019 Overview: works at [employer] 09/04 colon WNL iqra 10y MENDOZA (obstructive [...] mRNA, LNP-s, No Pre serve, 2-Dose Series (Ed[employer]) 11/13/2021,01/02/2021,12/08/2020 Covid-19, Mrna, Lnp-s, Pf, B ivalent, 30 Mcg, IM, 12 yrs and above ([employer]logics) 11/20/2022 Diptheria/Tetanus Adult (TD) 12/18/1998 H1N1 2009 Influenza, IM 01/01/2010 Hepatitis B, 20+ yrs 05/17/1998,12/18/1997,11/17 Pneumococcal Conjugate Vacci ne, 20-valent ([id number]) 01/29/2023 Pneumococcal Polysaccharide PPV23 (Pneumovax) 06/29/2009 Seasonal [...] encounter Miscellaneous Notes * Telephone Encounter - Jason Melton OSA - 12/08/2023 2:16 PM EST Pt stopped at my desk to ask about the VM left about calling the nurses. I relayed the message sentfrom Dr. Centeno. Pt reports that his cough has improved, says he is in no need of refills on the prednisone. He will call if anything additional is needed * Telephone Encounter - Robyn Nunez LPN [...] patient * Telephone Encounter - Weston Ramirez [facility] - 12/06/2023 10:49 AM EST Telepharmacy not [...] Last date the medication was ordered: Pharmacy: [facility] Is this request for a controlled [...] AM * Telephone Encounter - Weston Ramirez RPh - 12/06/2023 10:49 AM EST [...] Description 02/02/2024 8:40 AM EDT Office Visit [facility] [address] [place] [phone] Diana Malcolm CRNP [address] [place] [address] 06/15/2024 10:00 AM EDT Office Visit Sleep Disorders [facility]tr [facility] [address] [place] [phone] Cathy Mata DO [address] [place] [address] 08/05/2024 8:40 AM EDT Office Visit [facility] [address] [place] [address] Weston Centeno MD [address] [place] [address] Scheduled Procedures Name Priority Associated Diagnoses Date/Ti me COLONOSCOPY FLEXIBLE PROXIMA L DIAGNOSTIC Recall Special screening for malignant neoplasms, colon Health Maintenance Due Date Last Done Comments DISCUSS TOBACCO CESSATION (REFER TO SMARTSET #5231) 1965 Hepatitis C Screening 1985 Cologuard 2012 [...] 01/16/2022, Additional history exists B-12 07/30/2024 07/30/2023, 0 12/2021, 03/05/2021, Additional history exists GFR 07/30/2024 07/30/2023, 0 05/2022, 04/18/2022, Additional history exists Diabetic Eye Exam 11/18/2024 11/18/2023 (Do ne elsewhere), 07/25/2022, 04/09/2021, Additional history exists DTaP,Tdap,and Td Vaccines (3 - Td or Tdap) 06/02/2026 06/02/2016, 03/17/2005, 12/18/1998 Lipid Panel 07/30/2028 07/30/2023, 0 05/2022, 01/16/2022, Additional history exists Colonoscopy 09/22/2029 [...] (HCC) documented in this encounter Care Teams Train Director Relationship Specialty Start Date End Date Weston Centeno MD [address] [place] [address] PCP - General Family Medicine 04/29/17 documented as of this encounter
--- OUTSIDE RECORDS SUMMARY | 2024-01-08 12:25 | External Medical Summary | Summary of Care ---
Author Name Unknown Organization [facility] Address [address] [facility] [place] [address] Phone [phone] Care Team Providers Care Physical Instructor Name Role Phone Weston Centeno MD Primary Care Provider + Reason for Visit * Reason Comments Medication Refill Encounter Details Date Type Department Care Team (Late st Contact Info) Description 12/05/2023 Refill Family Practice [facility] [address] [place] [address] Weston Centeno MD [address] [place] [address] Type 2 diabetes mellitus with hemoglobin A1c [...] Well adult exam 08/19/2019 Overview: works at [employer] 09/04 colon WNL iqra 10y MENDOZA (obstructive [...] mRNA, LNP-s, No Pre serve, 2-Dose Series (easy2map) 11/13/2021,01/02/2021,12/08/2020 Covid-19, Mrna, Lnp-s, Pf, B ivalent, 30 Mcg, IM, 12 yrs and above (easy2map) 11/20/2022 Diptheria/Tetanus Adult (TD) 12/18/1998 H1N1 2009 Influenza, IM 01/01/2010 Hepatitis B, 20+ yrs 05/17/1998,12/18/1997,11/17 Pneumococcal Conjugate Vacci ne, 20-valent ([id number]) 01/29/2023 Pneumococcal Polysaccharide PPV23 (Pneumovax) 06/29/2009 Seasonal [...] patient * Telephone Encounter - Weston Ramirez [facility] - 12/06/2023 10:49 AM EST Telepharmacy not [...] Last date the medication was ordered: Pharmacy: [facility] Is this request for a controlled substance? No Urine Drug Screen:No results found for this or any previous visit. Patient Phone Numbers mobile [phone] Labs: Lab Results Component Value Date/Time CREAT [...] AM * Telephone Encounter - Weston Ramirez [facility] - 12/06/2023 10:49 AM EST Pending Prescriptions: [...] 8:40 AM EDT Office Visit Family [facility] [address] [place] [address] Diana Malcolm CRNP [address] [place] [address] 06/15/2024 10:00 AM EDT Office Visit [facility] [address] [place] [phone] Cathy Mata, DO [address] [place] [address] 08/05/2024 8:40 AM EDT Office Visit [facility] [address] [place] [address] Weston Centeno MD [address] [place] [address] Scheduled Procedures Name Priority Associated Diagnoses Date/Ti me COLONOSCOPY FLEXIBLE PROXIMA L DIAGNOSTIC Recall Special screening for malignant neoplasms, colon Health Maintenance Due Date Last Done Comments DISCUSS TOBACCO CESSATION (REFER TO SMARTSET #3868) 1965 Hepatitis C Screening 1985 Cologuard 2012 [...] (HCC) documented in this encounter Care Teams Physical Instructor Relationship Specialty Start Date End Date Weston Centeno MD [address] [place] [address] PCP - General Family Medicine 04/29/17 documented as of this encounter
--- OUTSIDE RECORDS SUMMARY | 2024-01-08 12:26 | External Medical Summary | Summary of Care ---
Author Name Unknown Organization [facility] Address [address] [facility] [place] [address] Phone [phone] Care Team Providers Care Vice President Sales And Marketing Name Role Phone Weston Andrews MD Primary Care Provider + Reason for Visit * Reason Comments Acute Continued cough. Muc us has started to become darker-feels his chest is getting heavier. Took zpac with no relief. Encounter Details Date Type Department Care Team (Late st Contact Info) Description 11/18/2023 2:00 PM EST Office Visit Family Practice [facility] [place] [address] Weston Andrews MD [address] [place] [address] Acute cough*; Type 2 diabetes mellitus with hemoglobin A1c goal of less than 8.0% ([facility]); Obesity, morbid (more than 100 lbs over ideal weight or BMI > 40) ([facility]) Allergies Active Allergy Reactions Criticality Noted Date Comments Bee Stings 12/23/2007 Edema/local area, "chest tightness" Lisinopril Cough Low 10/05/2014 documented as of this encounter (statuses as of 11/19/2023) Medications Medication Sig Dispensed Refills Start Date [...] NOT CUT/CRUSH/CHEW 90 Tablet 1 11/03/2023 Active Doxycycline Hyclate 100 MG Oral CapsuleIndications :Acute cough Take 1 Capsule by mouth in the morning and 1 Capsule before bedtime. Do all this for 10 days. Until gone.. 20 Capsule 0 11/18/2023 11/28/2023 Active ProAir HFA 108 (90 Base) MCG/ACT Inhalation Aerosol SolutionIndication s:Acute cough Inhale 2 Puffs by mouth every 4 hours as needed (cough/wheeze). 18 g 1 11/18/2023 Active documented as of this encounter (statuses as of 11/19/2023) Active Problems Problem Noted Date Diagnosed Date History of 2019 novel coronavirus disease (COVID -19) 08/09/2022 Gastroesophageal reflux disease without esophagi tis 01/07/2022 Well adult exam 08/19/2019 Overview: works at [employer] 09/04 colon WNL iqra 10y MENDOZA (obstructive [...] as of this encounter (statuses as of 11/19/2023) Resolved Problems Problem Noted Date Diagnosed Date [...] as of this encounter (statuses as of 11/19/2023) Immunizations Name Administration Dates Next Due COVID-19 mRNA, LNP-s, No Pre serve, 2-Dose Series (T[employer]setters) 11/13/2021,01/02/2021,12/08/2020 Covid-19, Mrna, Lnp-s, Pf, B ivalent, 30 Mcg, IM, 12 yrs and above (T[employer]setters) 11/20/2022 Diptheria/Tetanus Adult (TD) 12/18/1998 H1N1 2009 Influenza, IM 01/01/2010 Hepatitis B, 20+ yrs 05/17/1998,12/18/1997,11/17 Pneumococcal Conjugate Vacci ne, 20-valent ([id number]) 01/29/2023 Pneumococcal Polysaccharide PPV23 (Pneumovax) 06/29/2009 Seasonal [...] attempted to quit: 11/17/1996 Smokeless Tobacco: Never Tobacco Cessation:Ready to Q uit: Not Asked; Counseling Given: Not Answered Comments:has an occ. cigar 3-4 times a year Alcohol Use Standard Drinks/Week [...] on file documented as of this encounter Last Filed Vital Signs Vital Sign Reading Time Taken Comments Blood Pressure 130/82 11/18/2023 2:12 PM EST Pulse 84 11/18/2023 2:12 PM EST Temperature 36.3 C (97.4 F) 11/18/2023 2:12 PM ES T Respiratory Rate 12 11/18/2023 2:12 PM EST Oxygen Saturation 97% 11/18/2023 2:12 PM EST Inhaled Oxygen Concentration - - Weight - - Height - - Body Mass Index - - documented in this encounter Progress Notes * Weston Andrews MD - 11/18/2023 2:46 PM EST SUBJECTIVE: Kunal Hansen is a 57 year old male here for Acute (Continued cough. Mucus has started to becomedarker-feels his chest is getting heavier. Took zpac with no relief. ) . Cough for a little less than 2wk. Was seen Last week, thought was likely viral, but was given a Z-Lalit. Did not seem to improve. Did in fact worsened, in the last 2 days more tighter in his chest feels a little wheezy at night. No fever no chills no shortness a breath no chest pain. No nausea vomiting diarrhea constipation. In the past he has needed prednisone and albuterol. Who was seen in the past by pulmonology but wastold he just had history of bronchitis. Was on Breo briefly 2 years ago. Physical: BP 130/82 | Pulse 84 | Temp 36.3 C (97.4 F) (Tympanic) | Resp 12 | SpO2 97% General-No apparent Distress Head, Eyes, Ears, Nose, Throat--Normocephalic, atraumatic Neck-Supple Lymph-no lymphadenopathy Lungs-Clear to Auscultation bilaterally no wheeze Cardiovascular--Regular rate & Rhythm, +s1, s2, no murmur Abdomen-soft, nontender, nondistended + bowel sounds Extremities--no edema Neuro-alert & oriented x3 (R05.1) Acute cough (primary encounter diagnosis) Plan: Doxycycline Hyclate 100 MG Oral Capsule, ProAir HFA 108 (90 Base) MCG/ACT Inhalation Aerosol Solution May need prednisone, but we will see. If needs pred would give glipizide w/it (E11.9) Type 2 diabetes mellitus with hemoglobin A1c goal of less than 8.0% ([facility]) Plan: cont mgmt Labs reviewed (E66.01) Obesity, morbid (more than 100 lbs over ideal weight or BMI > 40) ([facility]) Plan: cont mgmt -stable (This note was completed using the dictation program Fluency Direct. As such, there may be misspellings, word substitutions, or other variations that should not change the essence of the clinical content of this encounter note.If there is need for further clarification, please direct questions to the provider listed above.) Weston Andrews MD documented in this encounter Nursing Notes * Starr Dwyer LPN - 11/18/2023 2:12 PM EST The patient has been properly identified by confirmation of name and date of . Chief Complaint Patient presents with Acute Continued cough. Mucus has started to become darker-feels his chest is getting heavier. Took zpac with no relief. documented in this encounter Plan of Treatment Upcoming Encounters Date Type Department Care Team (Late st Contact Info) Description 02/02/2024 8:40 AM EDT Office Visit [facility] [address] [place] [address] Diana Malcolm CRNP [address] [place] [address] 06/15/2024 10:00 AM EDT Office Visit Sleep Disorders Ctr [facility] [address] [place] [phone] Cathy Mata DO [address] [place] [address] 08/05/2024 8:40 AM EDT Office Visit [facility] [address] [place] [address] Weston nAdrews MD [address] [place] [address] Scheduled Procedures Name Priority Associated Diagnoses Date/Ti me COLONOSCOPY FLEXIBLE PROXIMA L DIAGNOSTIC Recall Special screening for malignant neoplasms, colon Health Maintenance Due Date Last Done Comments DISCUSS TOBACCO CESSATION (REFER TO SMARTSET #4595) 1965 Hepatitis C Screening 1985 Cologuard 2012 Fecal Occult Blood Test 2012 Sigmoidoscopy 2012 Diabetic Foot Exam 07/13/2022 07/13/2021, 0 01/27/2020, 02/09/2019, Additional history exists COVID-19 Vaccine ( season) 2023 11/20/2022, 11/13/2021, 01/02/2021, Additional history exists Influenza Vaccine (FLU shot) (#1) 2023 08/23/2021, 08/19/2019, 08/12/2018, Additional history exists HbA1c 01/28/2024 07/30/2023, 090 05/2022, 01/16/2022, Additional history exists Depression Screening 01/30/2024 01/29/2023 Albumin/Creatinine Ratio 07/30/2024 023, 07/24/2022, 01/16/2022, Additional history exists B-12 07/30/2024 07/30/2023, 03/0 12/2021, 03/05/2021, Additional history exists GFR 07/30/2024 [...] Cancer Screening 09/22/2029 Hepatitis B Completed 05/17/1998, 0 11/1997, 11/17/1997 Zoster Vaccines Completed 07/13/2021, 03/28/2021 [...] as of this encounter Visit Diagnoses Diagnosis Acute cough- Primary Type 2 diabetes mellitus with hemoglobin A1c goal of less than 8.0% (HCC) Obesity, morbid (more than 100 lbs over ideal weight or BMI > 40) (HCC) Morbid obesity documented in this encounter Care Teams Vice President Sales And Marketing Relationship Specialty Start Date End Date Weston Andrews MD [address] [place] [address] PCP - General Family Medicine 04/29/17 documented as of this encounter
--- OUTSIDE RECORDS SUMMARY | 2024-01-08 12:26 | External Medical Summary | Summary of Care ---
Author Name Unknown Organization [facility] Address [address] [facility] [place] [address] Phone [phone] Care Team Providers Care Lead Developer Name Role Phone Weston Andrews MD Primary Care Provider + Reason for Visit * Reason Comments Acute Continued cough. Muc us has started to become darker-feels his chest is getting heavier. Took zpac with no relief. Encounter Details Date Type Department Care Team (Late st Contact Info) Description 11/18/2023 2:00 PM EST Office Visit [facility] [place] [address] Weston Andrews MD [address] [place] [address] Acute cough*; Type 2 diabetes mellitus with hemoglobin A1c goal of less than 8.0% ([facility]); Obesity, morbid (more than 100 lbs over ideal weight or BMI > 40) ([facility]) Allergies Active Allergy Reactions Criticality Noted Date Comments Bee Stings 12/23/2007 Edema/local area, "chest tightness" Lisinopril Cough Low 10/05/2014 documented as of this encounter (statuses as of 11/18/2023) Medications Medication Sig Dispensed Refills Start Date [...] as of this encounter (statuses as of 11/18/2023) Active Problems Problem Noted Date Diagnosed Date History of 2019 novel coronavirus disease (COVID -19) 08/09/2022 Gastroesophageal reflux disease without esophagi tis 01/07/2022 Well adult exam 08/19/2019 Overview: works at [employer] 09/04 colon WNL iqra 10y MENDOZA (obstructive [...] as of this encounter (statuses as of 11/18/2023) Resolved Problems Problem Noted Date Diagnosed Date [...] as of this encounter (statuses as of 11/18/2023) Immunizations Name Administration Dates Next Due COVID-19 mRNA, LNP-s, No Pre serve, 2-Dose Series (ZeOmega) 11/13/2021,01/02/2021,12/08/2020 Covid-19, Mrna, Lnp-s, Pf, B ivalent, 30 Mcg, IM, 12 yrs and above (ZeOmega) 11/20/2022 H1N1 2009 Influenza, IM 01/01/2010 Hepatitis B, 20+ yrs 05/17/1998,12/18/1997,11/17 Pneumococcal Conjugate Vacci ne, 20-valent ([id number]) 01/29/2023 Pneumococcal Polysaccharide PPV23 (Pneumovax) 06/29/2009 Seasonal [...] hemoglobin A1c goal of less than 8.0% ([facility]) Plan: cont mgmt Labs reviewed (E66.01) Obesity, morbid (more than 100 lbs over ideal weight or BMI > 40) ([facility]) Plan: cont mgmt -stable (This note [...] Description 02/02/2024 8:40 AM EDT Office Visit [facility] [address] [place] [address] Diana Malcolm CRNP [address] [place] [address] 06/15/2024 10:00 AM EDT Office Visit Sleep Disorders Ctr [facility] [address] [place] [phone] Cathy Mata DO [address] [place] [address] 08/05/2024 8:40 AM EDT Office Visit [facility] [address] [place] [address] Weston Andrews MD [address] [place] [address] Scheduled Procedures Name Priority Associated Diagnoses Date/Ti me COLONOSCOPY FLEXIBLE PROXIMA L DIAGNOSTIC Recall Special screening for malignant neoplasms, colon Health Maintenance Due Date Last Done Comments DISCUSS TOBACCO CESSATION (REFER TO SMARTSET #4267) 1965 Hepatitis C Screening 1985 Cologuard 2012 Fecal Occult Blood Test 2012 Sigmoidoscopy 2012 Diabetic Foot Exam 07/13/2022 07/13/2021, 0 01/27/2020, 02/09/2019, Additional history exists COVID-19 Vaccine ( season) 2023 11/20/2022, 11/13/2021, 01/02/2021, Additional history exists Influenza Vaccine (FLU shot) (#1) 2023 08/23/2021, 08/19/2019, 08/12/2018, Additional history exists Diabetic Eye Exam 07/25/2023 07/25/2022, , 12/18/2020 (Done elsewhere), Additional history exists HbA1c 01/28/2024 07/30/2023, 09/0 05/2022, 01/16/2022, Additional history exists Depression Screening 01/30/2024 01/29/2023 Albumin/Creatinine Ratio 07/30/2024 023, 07/24/2022, 01/16/2022, Additional history exists B-12 07/30/2024 07/30/2023, 03/0 12/2021, 03/05/2021, Additional history exists GFR 07/30/2024 07/30/2023, 09/0 05/2022, 04/18/2022, Additional history exists DTaP,Tdap,and Td Vaccines (3 - Td or Tdap) 06/02/2026 06/02/2016, 03/17/2005, 12/18/1998 Lipid Panel 07/30/2028 07/30/2023, 09/0 05/2022, 01/16/2022, Additional history exists Colonoscopy 09/22/2029 09/22/2019, 1104/2019, 03/11/2013, Additional history exists Colorectal Cancer Screening [...] obesity documented in this encounter Care Teams Lead Developer Relationship Specialty Start Date End Date Weston Andrews MD [address] [place] [address] PCP - General Family Medicine 04/29/17 documented as of this encounter
--- OUTSIDE RECORDS SUMMARY | 2024-01-08 12:26 | External Medical Summary | Summary of Care ---
Author Name Unknown Organization [facility] Address [address] [place] [address] Phone [phone] Care Team Providers Care Supervisor [employer] Name Role Phone Weston Andrews MD Primary Care Provider + Reason for Visit * Reason Comments Acute Pt here for c/o cold symptoms with dry cough and congestion and now going into his chest, for a few weeks and not going away. He is sore from coughing and has past of bronchitis and wants to avoid getting that again. Encounter Details Date Type Department Care Team (Late st Contact Info) Description 11/08/2023 9:40 AM EST Office Visit Family [facility] [address] [facility] [place] [address] MarchVijay MD [address] [place] [address] Bronchitis, complicated*; Type 2 diabetes mellitus with hemoglobin A1c goal of less than 8.0% ([facility]); HTN, goal below 130/80 Allergies Active Allergy Reactions Criticality Noted Date Comments Bee Stings 12/23/2007 Edema/local area, "chest tightness" Lisinopril Cough Low 10/05/2014 documented as of this encounter (statuses as of 11/08/2023) Medications Medication Sig Dispensed Refills Start Date End Date Status EXCEDRIN MIGRAINE 250-250-65 MG PO TABS used as needed 0 Active Aspirin 81 MG Oral Tablet Delayed Release (Aspirin Low Dose) TAKE ONE TABLET BY MOUTH EVERY MORNING 100 Tablet 3 04/11/2023 04/10/2024 Active Empagliflozin 25 MG Oral Tablet (Jardiance)Indicati ons:Type 2 diabetes mellitus with hemoglobin A1c [...] Active Clobetasol Propionate 0.05 % External Ointment (Temovate)Indicatio ns:Rash and nonspecific skin eruption APPLY TOPICALLY TO AFFECTED AREA 2 TIMES A DAY FOR UP TO 2 WEEKS. 60 g 0 09/25/2023 09/24/2024 Active Gabapentin 300 MG Oral Capsule (Neurontin) Take 1 Capsule by mouth in the morning and 1 Capsule at noon and 1 Capsule before bedtime. 90 Capsule 3 10/11/2023 Active Naproxen 500 MG Oral Tablet (Naprosyn) Take 1 Tablet by mouth 2 times a day as needed for Pain. With food 40 Tablet 1 10/11/2023 Active Atorvastatin Calcium 20 MG Oral Tablet (Lipitor)Indication s:Type 2 diabetes mellitus with hemoglobin A1c goal of less than 8.0% (HCC) TAKE ONE TABLET BY MOUTH IN THE MORNING 90 Tablet 1 11/03/2023 11/02/2024 Active metFORMIN HCl ER 500 MG Oral Tablet Extended Release 24 Hour (Glucophage XR)Indications:Type 2 diabetes mellitus with hemoglobin A1c goal of less than 8.0% (HCC) TAKE 4 TABLETS BY MOUTH DAILY WITH DINNER 360 Tablet 1 11/03/2023 Active Furosemide 20 MG Oral Tablet (Lasix) TAKE ONE TABLET BY MOUTH EVERY MORNING 90 Tablet 1 11/03/2023 Active Pantoprazole Sodium 40 MG Oral Tablet Delayed Release (Protonix)Indicatio ns:Gastroesophageal reflux disease without esophagitis TAKE ONE TABLET BY MOUTH EVERY MORNING BEFORE FIRST MEAL OF THE DAY - DO NOT CUT/CRUSH/CHEW 90 Tablet 1 11/03/2023 Active Azithromycin 250 MG Oral Tablet (Zithromax)Indicati ons:Bronchitis, complicated Take 2 tabs by mouth on the first day, then 1 tab daily on days two through five 6 Tablet 0 11/08/2023 11/13/2023 Active documented as of this encounter (statuses as of 11/08/2023) Active Problems Problem Noted Date Diagnosed Date History of 2019 novel coronavirus disease (COVID -19) 08/09/2022 Gastroesophageal reflux disease without esophagi tis 01/07/2022 Well adult exam 08/19/2019 Overview: works at [employer] 09/04 colon WNL iqra 10y MENDOZA (obstructive [...] as of this encounter (statuses as of 11/08/2023) Resolved Problems Problem Noted Date Diagnosed Date [...] as of this encounter (statuses as of 11/08/2023) Immunizations Name Administration Dates Next Due COVID-19 mRNA, LNP-s, No Pre serve, 2-Dose Series ([employer]) 11/13/2021,01/02/2021,12/08/2020 Covid-19, Mrna, Lnp-s, Pf, B ivalent, 30 Mcg, IM, 12 yrs and above ([employer]) 11/20/2022 H1N1 2009 Influenza, IM 01/01/2010 Hepatitis B, 20+ yrs 05/17/1998,12/18/1997,11/17 Pneumococcal Conjugate Vacci ne, 20-valent ([id number]) 01/29/2023 Pneumococcal Polysaccharide PPV23 (Pneumovax) 06/29/2009 Seasonal [...] Sign Reading Time Taken Comments Blood Pressure 114/78 11/08/2023 9:34 AM EST Pulse 71 11/08/2023 9:34 AM EST Temperature 36.3 C (97.3 F) 11/08/2023 9:34 AM ES T Respiratory Rate 16 11/08/2023 9:34 AM EST Oxygen Saturation 96% 11/08/2023 9:34 AM EST Inhaled Oxygen Concentration - - Weight 124.3 kg (274 lb) 11/08/2023 9:34 AM EST Height - - Body Mass Index 40.46 08/01/2023 8:18 AM EDT documented in this encounter Progress Notes * Vijay Parker MD - 11/08/2023 9:47 AM EST Images from the original note were not included. Assessment and Plan 1. Bronchitis, complicated Antibiotics as below. Avoid steroids due to DM. Continue OTC cough suppressants and hydration. - Azithromycin 250 MG Oral Tablet (Zithromax); Take 2 tabs by mouth on the first day, then 1 tab daily on days two through five Dispense: 6 Tablet; Refill: 0 2. Type 2 diabetes mellitus with hemoglobin A1c goal of less than 8.0% ([facility]) A1C 7.4. 3. HTN, goal below 130/80 BP at goal. Wrap-Up Follow up as needed. History of Present Illness The patient is a 57-year-old male with past medical history of type 2 diabetes, dyslipidemia, MENDOZA, hypertension, obesity, migraine, depression who presents for sick visit. Sick as far back as . Sinus pressure and drainage. Whitish yellow mucus being coughed up. No shortness of breath. also sick. Some diarrhea. No vomiting. No issues with appetite. Has been using afrin and flonase. Physical Exam Vitals: 11/08/23 0934 Temp: 36.3 C (97.3 F) Pulse: 71 Resp: 16 SpO2: 96% BP: 114/78 Physical Exam Physical Exam Vitals reviewed. Constitutional: General: He is not in acute distress. HENT: Right Ear: Tympanic membrane normal. There is no impacted cerumen. Left Ear: Tympanic membrane normal. There is no impacted cerumen. Cardiovascular: Rate and Rhythm: Normal rate and regular rhythm. Heart sounds: No murmur heard. Pulmonary: Effort: Pulmonary effort is normal. Comments: Few scattered wheezes. Course breath sounds. Dry cough. Skin: General: Skin is warm and dry. Neurological: General: No focal deficit present. Mental Status: He is alert. documented in this encounter Plan of Treatment Upcoming Encounters Date Type Department Care Team (Late st Contact Info) Description 02/02/2024 8:40 AM EDT Office Visit [facility] [address] [facility] [place] [address] Diana Malcolm CRNP [address] [facility] [place] [address] 06/15/2024 10:00 AM EDT Office Visit [facility] [address] [place] [id number] Cathy Mata, [address] [place] [address] 08/05/2024 8:40 AM EDT Office Visit Family Practice [facility] [address] [place] [address] Weston Andrews MD [address] [place] [address] Scheduled Procedures Name Priority Associated Diagnoses Date/Ti me COLONOSCOPY FLEXIBLE PROXIMA L DIAGNOSTIC Recall Special screening for malignant neoplasms, colon Health Maintenance Due Date Last Done Comments DISCUSS TOBACCO CESSATION (REFER TO SMARTSET #6595) 1967 Hepatitis C Screening 1985 Cologuard 2012 Fecal Occult Blood Test 2012 Sigmoidoscopy 2012 Diabetic Foot Exam 07/13/2022 07/13/2021, 0 01/27/2020, 02/09/2019, Additional history exists COVID-19 Vaccine ( season) 2023 11/20/2022, 11/13/2021, 01/02/2021, Additional history exists Influenza Vaccine (FLU shot) (#1) 2023 08/23/2021, 08/19/2019, 08/12/2018, Additional history exists Diabetic Eye Exam 07/25/2023 07/25/2022, , 12/18/2020 (Done elsewhere), Additional history exists HbA1c 01/28/2024 07/30/2023, 0905/2022, 01/16/2022, Additional history exists Depression Screening 01/30/2024 01/29/2023 Albumin/Creatinine Ratio 07/30/2024 023, 07/24/2022, 01/16/2022, Additional history exists B-12 07/30/2024 07/30/2023, 12/2021, 03/05/2021, Additional history exists GFR 07/30/2024 07/30/2023, 0 05/2022, 04/18/2022, Additional history exists DTaP,Tdap,and Td [...] as of this encounter Visit Diagnoses Diagnosis Bronchitis, complicated- Primary Bronchitis, not specified as acute or chronic Type 2 diabetes mellitus with hemoglobin A1c goal of less than 8.0% (HCC) HTN, goal below 130/80 Unspecified essential hypertension documented in this encounter Care Teams Supervisor Wheel [employer] Relationship Specialty Start Date End Date Weston Andrews MD [address] [address] PCP - General Family Medicine 04/29/17 documented as of this encounter
--- NOTE | 2024-01-08 12:27 | Communication Note ---
Date of Service: January 08, 2024 Dobutamine stress echo negative for ischemia. Stable for discharge from a cardiac perspective. Recommend increase in atorvastatin to 40 mg daily and consider increase in losartan to 50 mg daily as outpatient. Follow up with cardiology as outpatient on an as needed basis should future concerns arise.
--- NOTE | 2024-01-08 12:39 | Discharge Summary ---
Date of Service January 08, 2024 Admission HPI Per Admitting Provider This is a 58 yo M with PMHx of HTN, HLD, DM II, obesity who presents with several occurrences of chest pain. Pt noticed it on Friday a few episodes of chest pain, then again happened on Friday with with a few seconds of chest pain, sharp quick pain, nonradiating. No associated shortness of breath, diaphoresis, and this occurred at rest. He denies any of these episodes during exertional activities. Rates this as a 1/10 and feels it is a nuisance more so than a pain at this time. Pt notes a generalized ill feeling after taking losartan in the morning for about 2 hours regularly since he started the medication last fall. He is very active person, but does not specifically exercise. 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 He also notes he has dealt with left shoulder blade muscle tension chronically. He has left distal clavicle resection shoulder surgery in 2021, but states that he has recovered since such. He describes this pain in the shoulder prior to the surgery and afterwards was a dull ache, sometimes with left arm numbness, but the other chest pain as described above is completely different. He has chronic left knee pain and left lower extremity swelling. Pt takes diuretic daily and hasn't noticed any increases in edema. We discussed that if he needed to participate in a treadmill stress test, that he feels he would be able to do it. Pt reports recently getting over a pneumonia in Oct - Nov 2023 where he was treated with steroids, antibiotics and inhalers. He still has a cough but denies any shortness of breath. Social Hx: Smokes cigar once ever 1-3 months. Denies any cigarette use, hx of chewing tobacco 20 years ago. Reports occasional alcohol intake 1-2x per month. Denies any drug use. Family Hx: Mother: CHF Admission Exam Per Admitting Provider General: awake, alert, no apparent distress Head: Normocephalic, atraumatic ENT: PERRL, EOMI, no pharyngeal exudate, mucous membranes moist Chest: Clear to auscultation, on room air, no adventitious breath sounds Cardiac: Regular rate and rhythm, no murmur, no JVD, normal peripheral pulses, good capillary refill Abdominal: NABS x 4 quadrants, soft, nondistended, nontender to palpation, no rebound or guarding Extremities: Normal inspection, no peripheral edema or erythema, calfs nontender to palpation Psych: Normal mood and affect Neuro: AAO x 3, strength intact bilaterally and rated 5/5, no motor deficits, speech is clear, no peripheral sensory deficits Principal Diagnosis Chest pain, ACS ruled out Discharge Exam Constitutional: Alert oriented x 3; not in distress Respiratory: normal respiratory effort, lungs clear to auscultation, no wheeze, rales, rhonchi. Normal insp/exp effort, no accessory muscle use Cardiovascular: RRR, no murmur, no edema Vessels: no JVD or carotid bruit Chest: normal inspection of chest Abdomen: normal bowel sounds, soft, nontender, no hepatosplenomegaly Musculoskeletal: no cyanosis or clubbing, extremities motor strength 5/5 Skin: no rashes, warm and dry normal turgor Neurologic: PERRL, EOMI, accommodation nl, no face palsy, no dysarthria CN's II- XI intact bilaterally and moves all extremities Psychiatric: A+Ox3, euthymic affect Discharge Data Allergies Allergy/AdvReac Type Severity Reaction Status Date / Time bee venom protein (honey bee) Allergy Unknown TIGHTNESS Verified 01/07/24 17:06 IN CHEST, USED BENADRYL TO TX - SEE NOTES lisinopril AdvReac Unknown coughing Verified 01/07/24 17:06 spells Consultations 01/07/24 16:55 ED Decision to Admit Stat 01/07/24 17:30 Consult Cardiology Routine Ordered Studies 01/08/24 08:03 CTA chest w con [CT angio chest w con] Stat Hospital Course (1) Chest pain: (2) Hypertension: (3) HLD (hyperlipidemia): (4) Obesity, morbid, BMI 40.0-49.9: Patient is a 58-year-old male with past medical history of hypertension, type 2 diabetes mellitus, obesity who presents to the hospital with several episodes of chest pain. On presentation to the hospital, his vital signs were stable. He was afebrile and saturating well on room air. EKG showed normal sinus rhythm; no ST or T wave changes. High sensitive troponin were negative CTA chest was done to rule out thoracic aortic dissection; Echocardiogram showed EF of 55 to 60% with grade 1 diastolic dysfunction. Mild concentric LVH present. Patient underwent dobutamine stress echo which was within normal limits. Patient was discharged home on increased dose of Lipitor to 40 mg once a day. His Protonix was increased from 40 mg once a day to twice a day. Outpatient consideration should be done to increase his losartan to 50 mg once a day Patient will follow-up with his primary care doctor as outpatient. Please note the above document was generated using voice recognition software. It may contain grammatical, syntax or spelling errors. Any formal questions or concerns about the content, text or information contained within the body of this dictation should be directly addressed to the provider for clarification Total Time Total Time Spent Total Time Spent (In Minutes): 45 Total Time Includes: Examination of the Patient, Discharge Planning, Medication Reconciliation, Communication With Other Providers and Other Discharge Plan Discharge Items Patient Disposition: Home - Self-Care Reason For Visit: CHEST PAIN Discharge Diagnosis: Chest pain, ACS ruled out Activity: Resume your previous activity Non-emergency contact: Primary Care Provider Call non-emergency contact if: you have any medication questions and your symptoms worsen Follow-up/Referrals: Weston Andrews MD [Primary Care Provider] - (Date & Time 01/13/2024 1:00 PM Provider Weston Andrews MD Department Family [facility] ) Diet: Regular Addtl Attending Provider Instructions: You were admitted to the hospital due to chest pain. You underwent evaluation by bus escort during the hospitalization. You underwent echocardiogram and stress echocardiogram; your heart function is normal. The following medication changes are recommended by the bus escort: Increase Lipitor from 20 mg once a day to 40 mg once a day. Minimize the use of naproxen; will prefer using Tylenol instead of naproxen. You are prescribed Protonix 40 mg twice daily instead of once a day. Please follow low carbohydrate diet. Your A1c was found to be 7.9%; the goal A1c would be less than 7%. Please walk 30 minutes at least 5 days a week. This will improve your overall cardiovascular health. An appointment will be set up with your primary care doctor for follow-up Pending Studies at Discharge: No Stand-Alone Forms: My [employer], Smoking Cessation Medications and DC Order Prescriptions: New atorvastatin 40 mg Tablet 40 mg PO QAM Qty: 90 0RF Continued metformin 500 mg Tablet 2,000 mg PO HS aspirin 81 mg Tablet,Delayed Release (Dr/Ec) 81 mg PO QAM furosemide 20 mg Tablet 20 mg PO QAM Patient Comments: TAKE NEEDED, NOT EVERY NIGHT Jardiance 25 mg Tablet 25 mg PO QAM cyanocobalamin (vitamin B-12) [Vitamin B-12] 1,000 mcg Tablet 1,000 mcg PO QAM losartan 25 mg Tablet 25 mg PO QAM mecobalamin (vitamin B12) [B12 Active] 1,000 mcg Tablet,Chewable 1,000 mcg PO DAILY Changed pantoprazole 40 mg Tablet,Delayed Release (Dr/Ec) 40 mg PO BID Qty: 60 0RF Discontinued atorvastatin 20 mg Tablet 20 mg PO QAM naproxen 500 mg Tablet 500 mg PO BID PRN (Reason: Pain) Discharge Orders: Discharge Order (Routine); Ordered 01/08/24 Ordered By: Cal Han/Other Patient Handouts: Managing Type 2 Diabetes, Diabetes: Meal Planning Admission Data Admit Date/Time: 01/07/24 17:29 Attending Provider: Cal Kessler Admit Provider: Thu Prieto Primary Care Provider: Weston Andrews Other Providers: Thu Prieto; Naun Daley Other Interventions: Discharge Summary Assessment (RN) Last Done: 01/08/24 12:36
[2024-01-08] MEDS: DOBUTamine HCL 12.5 MG/ML 20 ML VIAL IV ONE (12:40)
[2024-01-08] MEDS: ATROPINE SULFATE 0.1 MG/ML 10ML SYR IV ONE (12:40)
[2024-01-08] MEDS: METOPROLOL TARTRATE 1 MG/ML VIAL IV ONE (12:40)
--- NOTE | 2024-01-08 12:53 | Electrocardiogram Report ---
Test Reason : Blood Pressure : / mmHG Vent. Rate : 075 BPM Atrial Rate : 075 BPM P-R Int : 188 ms QRS Dur : 104 ms QT Int : 386 ms P-R-T Axes : 077 -63 075 degrees QTc Int : 431 ms Normal sinus rhythm Left axis deviation Abnormal ECG When compared with ECG of 07-JAN-2024 14:13, Borderline criteria for Lateral infarct are no longer Present Confirmed by Yeison Zhu ([id number] on 01/08/2024 12:53:23 PM Referred By: Sanjuana Antoine Confirmed By:Horacio Zhu
--- OUTSIDE RECORDS SUMMARY | 2024-01-08 23:13 | External Medical Summary | Summary of Care ---
Author Name Unknown Organization [facility] Address [address] [facility] [place] [address] Phone [phone] Care Team Providers Care System Safety Engineer Name Role Phone Weston Andrews MD Primary Care Provider + Reason for Visit * Reason Comments Acute Intermittent sharp l eft sided chest pain. Last episode made patient nauseous. He is getting over a cold, so has cough and shortness of breath. Encounter Details Date Type Department Care Team (Late st Contact Info) Description 01/07/2024 1:00 PM EST Office Visit Family Practice [facility] [address] [facility] [place] [address] Sanjuana Antoine MD [address] [place] [address] Chest pain, unspecified type*; Type 2 diabetes mellitus with hemoglobin A1c goal of less than 8.0% ([facility]); HTN, goal below 130/80; Dyslipidemia Allergies Active Allergy Reactions Criticality Noted Date Comments Bee Stings 12/23/2007 Edema/local area, "chest tightness" Lisinopril Cough Low 10/05/2014 documented as of this encounter (statuses as of 01/07/2024) Medications Medication Sig Dispensed Refills Start Date End Date Status EXCEDRIN MIGRAINE 250-250-65 MG PO TABS used as needed 0 Active Aspirin 81 MG Oral Tablet Delayed Release (Aspirin Low Dose) TAKE ONE TABLET BY MOUTH EVERY MORNING 100 Tablet 3 04/11/2023 4 Active Empagliflozin 25 MG Oral Tablet (Jardiance)Indicatio ns:Type 2 diabetes mellitus with hemoglobin A1c [...] Active Clobetasol Propionate 0.05 % External Ointment (Temovate)Indication s:Rash and nonspecific skin eruption APPLY TOPICALLY TO AFFECTED AREA 2 TIMES A DAY FOR UP TO 2 WEEKS. 60 g 0 09/25/2023 4 Active Atorvastatin Calcium 20 MG Oral Tablet (Lipitor)Indications :Type 2 diabetes mellitus with hemoglobin A1c goal [...] Sodium 40 MG Oral Tablet Delayed Release (Protonix)Indication s:Gastroesophageal reflux disease without esophagitis TAKE ONE TABLET BY MOUTH EVERY MORNING BEFORE FIRST MEAL OF THE DAY - DO NOT CUT/CRUSH/CHEW 90 Tablet 1 11/03/2023 Active ProAir HFA 108 (90 Base) MCG/ACT Inhalation Aerosol SolutionIndications: Acute cough Inhale 2 Puffs by mouth every 4 hours as needed (cough/wheeze) . 18 g 1 11/18/2023 Active glipiZIDE 5 MG Oral Tablet (Glucotrol)Indicatio ns:Type 2 diabetes mellitus with hemoglobin A1c goal of less than 8.0% (HCC) Take 1 tablet by mouth 30 minutes before largest meal while on prednisone. 5 Tablet 0 11/21/2023 Active Naproxen 500 MG Oral Tablet (Naprosyn) Take 1 Tablet by mouth 2 times a day as needed for Pain. With food 60 Tablet 1 12/06/2023 Active Ondansetron 8 MG Oral Tablet Disintegrating (Zofran) DISSOLVE 1 TABLET BY MOUTH THREE TIMES A DAY NEEDED FOR NAUSEA AND VOMITING 21 Tablet 0 09/12/2022 4 Discontinue d(Medicatio n List Clean Up) Gabapentin 300 MG Oral Capsule (Neurontin) Take 1 Capsule by mouth in the morning and 1 Capsule at noon and 1 Capsule before bedtime. 90 Capsule 3 10/11/2023 4 Discontinue d(Medicatio n List Clean Up) Azithromycin 250 MG Oral Tablet (Zithromax)Indicatio ns:Bronchitis, complicated Take 2 tabs by mouth on the first day, then 1 tab daily on days two through five 6 Tablet 0 11/08/2023 4 Discontinue d(Medicatio n List Clean Up) Doxycycline Hyclate 100 MG Oral CapsuleIndications:A cute cough Take 1 Capsule by mouth in the morning and 1 Capsule before bedtime. Do all this for 10 days. Until gone.. 20 Capsule 0 11/18/2023 4 Discontinue d(Medicatio n List Clean Up) predniSONE 20 MG Oral Tablet (Deltasone)Indicatio ns:Type 2 diabetes mellitus with hemoglobin A1c goal of less than 8.0% ([facility]) Take 2 Tablets by mouth in the morning for 5 days. 10 Tablet 0 11/21/2023 4 Discontinue d(Medicatio n List Clean Up) guaiFENesin-Codeine 100-10 MG/5ML Oral Syrup (Robitussin AC) Take 5 mL by mouth every 4 hours as needed for Cough. 120 mL 0 11/21/2023 4 Discontinue d(Medicatio n List Clean Up) Fluocinonide 0.05 % External Gel (Lidex) Apply a small amount to dry area 4 times daily 30 g 0 12/11/2023 4 Discontinue d(Medicatio n List Clean Up) documented as of this encounter (statuses as of 01/07/2024) Active Problems Problem Noted Date Diagnosed Date History of 2019 novel coronavirus disease (COVID -19) 08/09/2022 Gastroesophageal reflux disease without esophagi tis 01/07/2022 Well adult exam 08/19/2019 Overview: works at [employer] 09/04 colon WNL iqra 10y MENDOZA (obstructive [...] as of this encounter (statuses as of 01/07/2024) Resolved Problems Problem Noted Date Diagnosed Date [...] as of this encounter (statuses as of 01/07/2024) Immunizations Name Administration Dates Next Due COVID-19 mRNA, LNP-s, No Pre serve, 2-Dose Series ([employer]) 11/13/2021,01/02/2021,12/08/2020 Covid-19, Mrna, Lnp-s, Pf, B ivalent, 30 Mcg, IM, 12 yrs and above ([employer]) 11/20/2022 Diptheria/Tetanus Adult (TD) 12/18/1998 H1N1 2009 Influenza, IM 01/01/2010 Hepatitis B, 20+ yrs 05/17/1998,12/18/1997,11/17 Pneumococcal Conjugate Vacci ne, 20-valent ([id number]) 01/29/2023 Pneumococcal Polysaccharide PPV23 (Pneumovax) 06/29/2009 Seasonal [...] Used Date Smoking Tobacco: Light Smoker Cigars Smokeless Tobacco: Never Tobacco Cessation:Ready to Q [...] Sign Reading Time Taken Comments Blood Pressure 122/90 01/07/2024 12:59 PM EST Pulse 77 01/07/2024 12:59 PM EST Temperature 36.2 C (97.1 F) 01/07/2024 1 2:59 PM EST Respiratory Rate 18 01/07/2024 12:5 9 PM EST Oxygen Saturation 96% 01/07/2024 12: 59 PM EST Inhaled Oxygen Concentration - - Weight 124.4 kg (274 lb 3.2 oz) 024 12:59 PM EST Height - - Body Mass Index 40.49 08/01/2023 8:18 AM EDT documented in this encounter Progress Notes * Sanjuana Antoine MD - 01/07/2024 1:08 PM EST Images from the original note were not included. History of Present Illness Kunal Hansen is a 58 year old male that presents for Acute (Intermittent sharp left sided chestpain. Last episode made patient nauseous. He is getting over a cold, so has cough and shortness of breath. ) Couple months of chest pain. Initially in back under L shoulder blade. Thought related to shoulder surgery. But has always had dull ache in L anterior chest. Present today at 2/10. Last week had three fast episodes of sharp L anterior chest pain, brief but resolved. Then Friday AM while driving to work had 3-4 episodes of sharp anterior chest pain, this time with nausea and dry heaves. Had to ice puller. Resolved after 30min. (Today is Friday) Has had URI sx since the holidays, can't quite shake it. Intermittent coughing with sinus drainage. Upset stomach when started blood pressure medication (losartan). 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 Physical activity is mostly yardwork and house work. Has noticed a drop in energy recently. Dad has aortic stenosis. Grandfather had valve replacement. Nicotine: none regularly, once/month cigar Cannabis: none Alcohol: a few times/yr Past medical history notable for diabetes, dyslipidemia, hypertension. On a statin, metformin, glipizide, losartan, empagliflozin, aspirin 81. Last stress test in our system in May 2014, negative. Most recent EKG is 2011. Current medications and allergies reviewed. Past medical history and problem list reviewed. Physical Exam Vitals: 01/07/24 1259 Temp: 36.2 C (97.1 F) Pulse: 77 Resp: 18 SpO2: 96% BP: 122/90 BP Readings from Last 3 Encounters: 01/07/24 122/90 11/18/23 130/82 11/08/23 114/78 Wt Readings from Last 3 Encounters: 01/07/24 124.4 kg (274 lb 3.2 oz) 11/08/23 124.3 kg (274 lb) 10/11/23 125.1 kg (275 lb 12.8 oz) Physical Exam Vitals and nursing note reviewed. Constitutional: General: He is not in acute distress. Appearance: Normal appearance. He is not ill-appearing. HENT: Head: Normocephalic and atraumatic. Eyes: Pupils: Pupils are equal, round, and reactive to light. Neck: Thyroid: No thyroid mass, thyromegaly or thyroid tenderness. Cardiovascular: Rate and Rhythm: Normal rate and regular rhythm. Heart sounds: No murmur heard. Pulmonary: Effort: Pulmonary effort is normal. Breath sounds: Normal breath sounds. Lymphadenopathy: Cervical: No cervical adenopathy. Skin: General: Skin is warm and dry. Neurological: Mental Status: He is alert. I have reviewed the following results: Lipid Panel, Hemoglobin A1C, TSH, CBC, BMP, and B12 12-lead EKG shows new possible Q waves in III, F and V6. [place] has shifted from rightward to leftward. No ST elevation or depression. Assessment and Plan Chest pain Symptoms concerning for unstable angina. High-risk given male, diabetes, hypertension, dyslipidemia. Does not have acute STEMI changes on EKG but does have new potentially chronic findings. Amenable to going to the emergency department. I think private vehicle is reasonable, his works up stairs in his getting off now. She will drive him right to the emergency department. - EKG; Future - EKG Type 2 diabetes mellitus with hemoglobin A1c goal of less than 8.0% (HCC) HTN, goal below 130/80 Dyslipidemia Wrap-Up Time: I spent a total of 20-29 minutes (exact time 21 mins) on the date of service in preparation, delivery, and documentation of the care provided to Kunal Hansen excluding any time spent in the performance of separately billed services. documented in this encounter Plan of Treatment Upcoming Encounters Date Type Department Care Team (Late st Contact Info) Description 02/02/2024 8:40 AM EDT Office Visit Family Practice [facility] [address] [place] [id number] Diana Malcolm CRNP [address] [place] [id number] 06/15/2024 10:00 AM EDT Office Visit [facility] [address] [place] [phone] Cathy Mata DO [address] [place] [id number] 08/05/2024 8:40 AM EDT Office Visit Family Practice [facility] [address] [place] [address] Weston Andrews MD [address] [place] [address] Scheduled Orders Name Type Priority Associated Diagnoses Orde r Schedule EKG EKG Routine Chest pain, unspecified type Expected: 01/07/2024 (Approximate), Expires: 02/04/2025 Scheduled Procedures Name Priority Associated Diagnoses Date/Ti me COLONOSCOPY FLEXIBLE PROXIMA L DIAGNOSTIC Recall Special screening for malignant neoplasms, colon Health Maintenance Due Date Last Done Comments DISCUSS TOBACCO CESSATION (REFER TO SMARTSET #[id number]) 1965 Hepatitis C Screening 1985 Cologuard 2012 [...] as of this encounter Visit Diagnoses Diagnosis Chest pain, unspecified type- Primary Type 2 diabetes mellitus with hemoglobin A1c goal of less than 8.0% (HCC) HTN, goal below 130/80 Unspecified essential hypertension Dyslipidemia Other and unspecified hyperlipidemia documented in this encounter Care Teams System Safety Engineer Relationship Specialty Start Date End Date Weston Andrews MD [address] [place] [address] PCP - General Family Medicine 04/29/17 documented as of this encounter
--- OUTSIDE RECORDS SUMMARY | 2024-01-08 23:13 | External Medical Summary | Summary of Care ---
Author Name Unknown Organization [facility] Address [address] [facility] [place] [address] Phone [phone] Care Team Providers Care Grain Elevator Operator Name Role Phone Weston Andrews MD Primary Care Provider + Reason for Visit * Reason Comments Acute Intermittent sharp l eft sided chest pain. Last episode made patient nauseous. He is getting over a cold, so has cough and shortness of breath. Encounter Details Date Type Department Care Team (Late st Contact Info) Description 01/07/2024 1:00 PM EST [facility] [address] [facility] [place] [address] Sanjuana Antoine MD [address] [place] [address] Chest pain, unspecified type*; Type 2 diabetes mellitus with hemoglobin A1c goal of less than 8.0% ([facility]); HTN, goal below 130/80; Dyslipidemia Allergies Active [...] hemoglobin A1c goal of less than 8.0% ([facility]) Take 2 Tablets by mouth in the [...] Well adult exam 08/19/2019 Overview: works at [employer] 09/04 colon WNL iqra 10y MENDOZA (obstructive [...] mRNA, LNP-s, No Pre serve, 2-Dose Series ([employer]) 11/13/2021,01/02/2021,12/08/2020 Covid-19, Mrna, Lnp-s, Pf, B ivalent, 30 Mcg, IM, 12 yrs and above ([employer]) 11/20/2022 Diptheria/Tetanus Adult (TD) 12/18/1998 H1N1 2009 Influenza, IM 01/01/2010 Hepatitis B, 20+ yrs 05/17/1998,12/18/1997,11/17 Pneumococcal Conjugate Vacci ne, 20-valent ([id number]) 01/29/2023 Pneumococcal Polysaccharide PPV23 (Pneumovax) 06/29/2009 Seasonal [...] with nausea and dry heaves. Had to cable puller. Resolved after 30min. (Today is Friday) Has had URI sx since the holidays, can't quite shake it. Intermittent coughing with sinus drainage. Upset stomach when started blood pressure medication (losartan). 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 Physical activity is mostly yardwork and house [...] Q waves in III, F and V6. [place] has shifted from rightward to leftward. No [...] 8:40 AM EDT Office Visit Family Practice [facility] [address] [place] [address] Diana Malcolm CRNP [address] [place] [address] 06/15/2024 10:00 AM EDT Office Visit [facility] [address] [place] [phone] Cathy Mata DO [address] [place] [id number] 08/05/2024 8:40 AM EDT Office Visit Family Practice [facility] [address] [place] [address] Weston Andrews MD [address] [place] [address] Scheduled Orders Name Type Priority Associated Diagnoses Orde r Schedule EKG EKG Routine Chest pain, unspecified type Expected: 01/07/2024 (Approximate), Expires: 02/04/2025 Scheduled Procedures Name Priority Associated Diagnoses Date/Ti me COLONOSCOPY FLEXIBLE PROXIMA L DIAGNOSTIC Recall Special screening for malignant neoplasms, colon Health Maintenance Due Date Last Done Comments DISCUSS TOBACCO CESSATION (REFER TO SMARTSET #[id number]) 1965 Hepatitis C Screening 1985 Cologuard 2012 [...] hyperlipidemia documented in this encounter Care Teams Grain Elevator Operator Relationship Specialty Start Date End Date Weston Andrews MD [address] [place] [address] PCP - General Family Medicine 04/29/17 documented as of this encounter
[2024-01-09] MEDS ORDERED: ATORVASTATIN 40 MG TAB PO SCH (09:00)
== END 2024-01-08 13:13 | disposition home or self-care (01) ==
LOC: ED 13:55 → 2E 13:55 → SUATTDRO 17:29 → 2E 18:26